=== PATIENT | female | born 1945 | race Caucasian/White ===

== ENCOUNTER → 2016-07-25 | Outpatient (CLI) | payer MEDICARE ==
--- NOTE | 2016-07-25 10:15 | RAD ---
Chest, 2 views, 07/25/2016: History: COPD, cough Comparison is made to a study from 09/03/2010. The lungs are hyperexpanded suggesting emphysema. There are scattered parenchymal scars. No acute infiltrate is seen. There is no evidence of pleural fluid. IMPRESSION: 1. Emphysema with parenchymal scarring. 2. No acute cardiopulmonary abnormality is detected.
== END | disposition home or self-care (01) ==
LOC: RAD 09:40
PROVIDERS: ATTEND Internal Medicine Critical Care Medicine
DX: J44.9 Chronic obstructive pulmonary disease, unspecified (principal); R05 Cough
CPT/HCPCS: 71020

== ENCOUNTER → 2016-10-01 | Outpatient (CLI) | payer MEDICARE ==
--- NOTE | 2016-10-03 08:17 | RAD ---
DATE: 10/01/2016 EXAM: DIGITAL SCREEN LT W/CAD HISTORY: Right breast cancer COMPARISON: 09/03/2015 This study was interpreted with the benefit of Computerized Aided Detection (CAD). The breast parenchyma is heterogeneously dense, which could reduce sensitivity of mammography. Breast parenchyma level C. FINDINGS: No new or enlarging breast densities are seen. Benign type calcifications are unchanged. No suspicious microcalcifications have developed. IMPRESSION: Stable left mammograms without evidence of malignancy. BI-RADS CATEGORY: 2 BENIGN FINDING(S) RECOMMENDED FOLLOW-UP: 12M 12 MONTH FOLLOW-UP PQRS compliance statement: Patient information was entered into a reminder system with a target due date for the next mammogram. Mammography is a sensitive method for finding small breast cancers, but it does not detect them all and is not a substitute for careful clinical examination. A negative mammogram does not negate a clinically suspicious finding and should not result in delay in biopsying a clinically suspicious abnormality. "Our facility is accredited by the [employer] Mammography Program."
== END | disposition home or self-care (01) ==
LOC: MAMMO 08:19
PROVIDERS: ATTEND Family Medicine
DX: Z12.31 Encounter for screening mammogram for malignant neoplasm of breast (principal)
CPT/HCPCS: G0202; 77067

== ENCOUNTER → 2017-06-14 | Day surgery (SDC) | payer MEDICARE ==
[~2017-06-14] MED LIST: LIDOCAINE 1% PF 2 ML VIAL.; PROPOFOL 20 ML IV
[2017-06-14] MEDS: IV RINGERS,LACTATED 1000ML 1,000 ML IV (06:29)
== END | disposition home or self-care (01) ==
LOC: ENDOS 06:06
DX: K64.0 First degree hemorrhoids (principal); D12.8 Benign neoplasm of rectum
CPT/HCPCS: 45385; 88305; J2704

== ENCOUNTER → 2019-10-22 | Outpatient (CLI) | payer MEDICARE ==
[2017-06-14 07:58] VITALS: BP 122/71
[~2019-10-22] MED LIST changes: +BUDE10.2 IH; -LIDOCAINE 1% PF 2 ML VIAL.; +LISI-334 PO; +PRAV40TA2 PO; -PROPOFOL 20 ML IV; +TRAZ-118 PO
--- NOTE | 2019-10-23 17:11 | RAD ---
EXAM: Unilateral digital screening mammography, left. HISTORY: Personal history of right breast cancer status post right mastectomy. Routine left surveillance. TECHNIQUE: Bilateral full field digital images were obtained in CC and MLO projections. Computer-aided detection was not available currently. COMPARISON: 10/20/2018. COMPOSITION: C. The breasts are heterogeneously dense, which may obscure small masses. FINDINGS: There is a region of architectural distortion and masslike density at the left 12:00 position. This lies just medial to course calcifications. See annotations. Elsewhere scattered and vascular calcifications appear benign. BI-RADS CATEGORY 0: Incomplete--Needs Additional Imaging Evaluation. RECOMMENDATION: 1. Compression/magnification images of a region of architectural distortion at the left 12:00 position. 2. Sonography of the left 12:00 position. Electronically signed by: Ledy Lu MD (10/23/2019 5:08 PM) [id number]
== END | disposition home or self-care (01) ==
LOC: MAMMO 10:45
PROVIDERS: ATTEND Family Medicine
DX: Z12.31 Encounter for screening mammogram for malignant neoplasm of breast (principal); N64.89 Other specified disorders of breast; Z85.3 Personal history of malignant neoplasm of breast
CPT/HCPCS: 77063; 77067

== ENCOUNTER → 2019-10-28 | Outpatient (CLI) | payer MEDICARE ==
[2017-06-14 07:58] VITALS: BP 122/71
[~2019-10-28] MED LIST changes: +ASCO500C9 PO; +CALC500T31 PO; +CHOL500050 PO; +HYDR-2761 PO; +MULT-496 PO; +OMEG1CAP50 PO; +SIMV20TA18 PO; +VENTOLIN HFA18 GM INH
--- NOTE | 2019-10-28 12:47 | RAD ---
DATE: 10/28/2019 10:04 AM EXAM: DIGITAL DIAGNOSTIC LT, BREAST LEFT HISTORY: Screening recall for left breast distortion. COMPARISON: 10/22/2019, 10/20/2018, 08/25/2010. Technique: Spot magnification views of the left breast in the CC and ML projections were obtained. Targeted ultrasound of the left breast was subsequently performed. FINDINGS: Breast Density: HETERO The breast parenchyma Is heterogeneously dense, which could reduce sensitivity of mammography. Breast parenchyma level C Spot magnification views of the left breast showed persistent architectural distortion in the superior left breast associated with coarse calcifications. Targeted ultrasound of this area revealed an irregular hypoechoic vascular mass measuring 2.0 x 1.3 x 1.5 cm at the left 12:00 position 2 cm from the nipple.Ultrasound of the left axilla revealed no adenopathy. IMPRESSION: Suspicious 2 cm mass at the left breast 12:00 position 2 cm from the nipple. BI-RADS CATEGORY: 4 SUSPICIOUS ABNORMALITY- BIOPSY SHOULD BE CONSIDERED RECOMMENDED FOLLOW-UP: BIO BIOPSY RECOMMENDED . Discussed with patient prior to her discharge from the imaging suite. Also discussed with the patient's referring physician Dr. Gerardo Blanton by telephone at 12:36 PM on 10/28/2019 PQRS compliance statement: Patient information was entered into a reminder system with a target due date for the next mammogram. Mammography is a sensitive method for finding small breast cancers, but it does not detect them all and is not a substitute for careful clinical examination. A negative mammogram does not negate a clinically suspicious finding and should not result in delay in biopsying a clinically suspicious abnormality. "Our facility is accredited by the [employer] Mammography Program."
== END ==
LOC: MAMMO 10:42
PROVIDERS: ATTEND Family Medicine
DX: N63.42 Unspecified lump in left breast, subareolar (principal)
CPT/HCPCS: 76641; 77065

== ENCOUNTER → 2019-11-12 | Outpatient (CLI) | payer MEDICARE ==
[2017-06-14 07:58] VITALS: BP 122/71
[~2019-11-12] MED LIST changes: -ASCO500C9 PO; -CALC500T31 PO; -CHOL500050 PO; -HYDR-2761 PO; -MULT-496 PO; -OMEG1CAP50 PO; -SIMV20TA18 PO; -VENTOLIN HFA18 GM INH
--- NOTE | 2019-11-12 18:08 | RAD ---
Examination: 1. Left breast core needle biopsy under ultrasound guidance. 2. Left digital postprocedure mammogram. INDICATION: 73-year-old lady with a suspicious left breast mass recommended for ultrasound-guided core needle biopsy. COMPARISON: Screening mammogram 10/22/2019, left digital diagnostic mammogram and breast ultrasound of 10/28/2019 TECHNIQUE AND FINDINGS: Informed consent was obtained and an appropriate procedural pause observed. Using standard sterile technique, ultrasound guidance and local anesthesia, two 14-gauge core biopsy samples of the 2 cm mass at the left breast 12:00 position 2 cm from the nipple were obtained and an S-shaped biopsy marker deployed at the biopsy site under ultrasound guidance. Hemostasis was ensured with direct breast compression and a postprocedure left mammogram was obtained. The left post procedure mammogram shows heterogeneously dense breast parenchyma with successful deployment of the S-shaped biopsy marker in the left breast mass at its medial margin with no postbiopsy hematoma. Patient tolerated procedure without incident. Puncture site was dressed in post procedure instructions reviewed prior to patient discharge. She was instructed to follow up with her referring physician regarding the results. There are no apparent complications. IMPRESSION: Successful left breast ultrasound-guided core needle biopsy of a 2 cm mass in the superior left breast. Pathology results are pending. An addendum will be issued once pathology results become available. Electronically signed by: Melinda Huertas MD (11/12/2019 6:06 PM) [id number]
--- NOTE | 2019-11-15 13:08 | PATHOLOGY ---
[facility] Accession Number: [id number] . 01 Material submitted: . breast - LEFT BREAST MASS, 12:00, 2CMFN. Modifiers: left, 12:00 . 01 Clinical history: . LEFT BREAST MASS . 02 Diagnosis: Breast "left mass at 12:00/2 cm from nipple", needle biopsy: - INVASIVE DUCTAL CARCINOMA, HIGH GRADE (GRADE 3), WITH A PROMINENT LYMPHOPLASMACYTIC COMPONENT. - Histologic grade ([place] Score; tubular formation - 3, nuclear pleomorphism - 3, mitotic rate - 2; total score - 8). - Greatest tumor dimension - 12 mm. - Microcalcifications involving tumor and surrounding benign breast tissue. . Dr. Valero is informed of the results on 11/15/2019. LBQ 11/15/2019 1303 Local . 02 Comment: Tissue from block A1 is forwarded for breast biomarker testing, and the results will be the subject of an addended report. The case is seen in co-review with Dr. Kyle Benito who concurs with the above diagnosis. (MLK/db; 11/14/2019) . 02 Electronically signed: . Thelma Elizondo MD, Pathologist NPI- [id number] . 01 Gross description: . The specimen is received in formalin, labeled "Kacey Galarza, left breast 12:00 2 cm from nipple". Received are two needle cores of fibrofatty tissue measuring 1.8 x 0.4 x 0.2 cm in aggregate dimensions. The specimen is submitted entirely in cassettes A1 and A2. The cold ischemic time is 2 minutes. The total formalin fixation time is 8 hours and 34 minutes. (CAA; 11/12/2019) QAC/QAC 11/12/2019 1655 Local . 02 Pathologist provided ICD-10: D05.12 . 02 CPT . 985641 Specimen Comment: A courtesy copy of this report has been sent to [phone], [phone] Specimen Comment: [id number], Specimen Comment: Report sent to ,DR VALERO / DR BRANDON Performed at: 01 [facility] [address], [place] [id number] MD Sunil Babcock MD Phone: [phone] Performed at: 02 [facility] [address], [place] [id number] MD Alf Ortega MD Phone: [phone]
== END | disposition home or self-care (01) ==
LOC: US 12:00
PROVIDERS: ATTEND Surgery
DX: C50.919 Malignant neoplasm of unspecified site of unspecified female breast (principal); N63.20 Unspecified lump in the left breast, unspecified quadrant; Z79.899 Other long term (current) drug therapy
CPT/HCPCS: 19083; 77065; C1713; 19081; 76942

== ENCOUNTER → 2019-11-22 | Outpatient (CLI) | payer MEDICARE ==
[2017-06-14 07:58] VITALS: BP 122/71
== END | disposition home or self-care (01) ==
LOC: LAB 13:02
PROVIDERS: ATTEND Surgery
DX: Z20.828 Contact with and (suspected) exposure to other viral communicable diseases (principal)
CPT/HCPCS: U0003-CS

== ENCOUNTER 2019-11-27 09:01 | Observation (INO) | payer MEDICARE ==
[~2019-11-27] VITALS: Ht 167.6 cm; Wt 51.0 kg
[2019-11-27] VITALS (8 sets, daily range): BP systolic 106–142; BP diastolic 64–74
[~2019-11-27 09:01] MED LIST changes: +ASCO500C9 PO; +CALC500T31 PO; +CHOL500050 PO; +HYDROmorphone 2 MG/ML VIAL IV PRN; +IV RINGERS,LACTATED 1000ML 1,000 ML IV SCH; +LIDOCAINE 1% PF 2 ML VIAL. ID PRN; +LIDOCAINE 2% PF 5 ML VIAL. ONE; +MORPHINE SULFATE 2 MG/ML VIAL. IV PRN; +MULT-496 PO; +OMEG1CAP50 PO; +ONDANSETRON PF 4 MG/2 ML VIAL. IV PRN; +PROCHLORPERAZINE 10 MG/2 ML VIAL. IV PRN; +PROPOFOL 10 MG/ML (20ML) VIAL. IV ONE; +SIMV20TA18 PO; +VENTOLIN HFA18 GM INH; +ceFAZolin SODIUM IV Push 1 GM VIAL. IVP ONE; +fentaNYL PF VIAL 100 MCG/2 ML VIAL IV PRN; +fentaNYL PF VIAL 100 MCG/2 ML VIAL ONE
[2019-11-27] MEDS ORDERED: ISOSULFAN BLUE 1% 50 MG/5 ML VIAL. SQ ONE (11:33)
[2019-11-27] MEDS ORDERED: SEVOFLURANE 61 TO 120 MINUTES. IH ONE (12:02)
[2019-11-27] MEDS ORDERED: DEXAMETHASONE SOD PHOS 4 MG/ML VIAL ONE (12:02)
[2019-11-27] MEDS ORDERED: ePHEDrine PF IN SALINE 50 MG/10 ML SYRINGE. IV ONE (12:25)
[2019-11-27] MEDS ORDERED: ONDANSETRON PF 4 MG/2 ML VIAL. ONE (12:25)
--- NOTE | 2019-11-27 12:44 | RAD ---
Examination: SENTINEL NODE INJECTION History: Reason: BREAST CANCER LEFT / Comparison/Correlation: None Findings: Risks and benefits of injection for sentinel node purposes were discussed with the patient and informed consent was obtained. Cleansing with Betadine at the left upper breast about the areola was performed. Subsequently, lidocaine spray was was utilized. 1 mCi technetium technetium 99m Lymphoseek was then intradermally administered approximately 1 cm from the areola at the 12:00 region. The technologist subsequently had massage the site of injection. No images acquired. Impression: Successful intradermal administration of radiotracer. Electronically signed by: Itz Ngo MD (11/27/2019 12:42 PM) [id number]
[2019-11-27] MEDS ORDERED: NALOXONE 0.4 MG/ML VIAL. IV PRN (13:45)
[2019-11-27] MEDS ORDERED: HYDROcodone/APAP 5/325MG 1 TAB TABLET PO PRN (13:45)
[2019-11-27] MEDS ORDERED: IV NORMAL SALINE 1000ML BAG 1,000 ML IV SCH (13:45)
[2019-11-27] MEDS ORDERED: HYDROmorphone 2 MG/ML VIAL IV PRN (13:45)
[2019-11-27] MEDS ORDERED: 0.9 % SODIUM CHLORIDE 10 ML DISP.SYRIN. IV PRN (13:45)
[2019-11-27] MEDS ORDERED: ONDANSETRON PF 4 MG/2 ML VIAL. IVP PRN (13:45)
[2019-11-27] MEDS ORDERED: IV 1/2 NORMAL SALINE 1,000 ML IV SCH (13:45)
--- NOTE | 2019-11-27 13:45 | PDOC4 ---
Operative Note Operative Note Operative Note: Preoperative Diagnosis: Left breast cancer Postoperative Diagnosis: Same Procedure: Left simple mastectomy with sentinel lymph node biopsy Surgeon: Ced Broadcast Technician: Guru MARKS Anesthesia: General EBL: 50 mL Specimen: Left sentinel lymph nodes 1 through 3 to pathology, left breast stitch at 12:00 to pathology Drains: 19 [place] round Maico drain to chest wall Complications: None Indication: The patient is a 73-year-old female who was recently diagnosed with left breast cancer. She prefers a complete mastectomy and we plan to include a sentinel lymph node biopsy. The risks of surgery were discussed which include bleeding, infection, scar tissue, wound healing problems, pain, anesthetic risk, potential need for additional surgery procedure. She understands and would like to proceed. Description: The patient was taken to the operating room and placed supine on the operating table. General anesthesia was performed. The left breast and axilla were prepped with ChloraPrep and draped in a standard surgical manner. 5 mL of Lymphazurin were injected deep to the nipple areolar complex. Several minutes were allowed to elapse. The left chest was marked with an elliptical tracing for planned mastectomy. In the superior lateral aspect of the tracing the skin was incised with a scalpel. Cautery dissection was carried down into the axilla. There were three areas of increased nuclear uptake corresponding to sentinel lymph nodes. The first two stained blue as well. The third did not. Each lymph node was harvested and sent to pathology. No other significant areas of increased uptake or blue staining were identified. Frozen section of the three lymph nodes showed no evidence of metastasis. We then proceeded with the mastectomy. With a scalpel the remainder of the elliptical incision was made following the tracing. Cautery dissection was used to develop the skin flaps. The superior flap was developed first the skin from the deeper breast parenchyma. This was carried superiorly to the level just below the clavicle. In a similar manner the inferior flap was developed which included the inframammary fold. In a medial to lateral fashion the breast was mobilized off the chest wall. The breast was fully excised and marked with a stitch at the 12 o'clock position and sent to pathology. Hemostasis was achieved with cautery. A 19 [place] round Maico drain was left in the chest wall with an exit site infer iorly. This was secured to the skin with 2-0 silk. The subcutaneous tissue was closed with 3-0 Vicryl and skin approximated with 4-0 Monocryl. A sterile OpSite dressing was then applied. The patient tolerated the procedure well sent to the recovery room in stable condition. At the end the case all counts were correct. DENNIS VALERO MD Nov 27, 2019 13:45
[2019-11-27] MEDS ORDERED: fentaNYL PF VIAL 100 MCG/2 ML VIAL ONE (13:58)
[2019-11-27] MEDS: fentaNYL PF VIAL 100 MCG/2 ML VIAL IV PRN ×2 (14:01→14:25)
[2019-11-27] MEDS ORDERED: ALBUTEROL SULFATE 2.5 MG/3 ML NEBU. NEB PRN (14:15)
--- NOTE | 2019-11-27 14:38 | NUR ---
Arrived to unit by bed from PACU. Alert and oriented x's 4. No c/o pain, "just sore". Dressing on left chest d/i with SUZAN drain. IVF's intact and infusing. SCD's on bilaterally. Oriented to room and controls. Side rails up x's 2 with call light in reach. Cont. monitor.
[2019-11-27] MEDS: ALBUTEROL SULFATE 2.5 MG/3 ML NEBU. NEB SCH ×2 (15:37→20:00)
[2019-11-27] MEDS ORDERED: NON FORMULARY ITEM (Albuterol Sulfate (Ventolin Hfa Inhaler) 2 PUFF) INH SCH (16:00)
[2019-11-27] MEDS: HYDROcodone/APAP 5/325MG 1 TAB TABLET PO PRN ×2 (19:19→23:22)
[2019-11-27] MEDS: BUDESONIDE 0.5 MG/2 ML NEBU. NEB SCH (20:00)
[2019-11-27] MEDS ORDERED: SIMVASTATIN 20 MG TABLET PO SCH (21:00)
[2019-11-27] MEDS ORDERED: traZODone 50 MG TABLET. PO SCH (21:00)
[2019-11-27] MEDS ORDERED: NON FORMULARY ITEM (Budesonide/Formoterol Fumarate (Symbicort 160-4.5 Mcg Inhaler) 1 PUFF) IH SCH (21:00)
[2019-11-28 03:10] VITALS: BP 133/64
[2019-11-28 06:11] VITALS: BP 130/59
[2019-11-28] MEDS: BUDESONIDE 0.5 MG/2 ML NEBU. NEB SCH (07:36)
[2019-11-28] MEDS: ALBUTEROL SULFATE 2.5 MG/3 ML NEBU. NEB SCH ×2 (07:37→11:11)
[2019-11-28] MEDS ORDERED: ASCORBIC ACID 500 MG TABLET PO SCH (09:00)
[2019-11-28] MEDS ORDERED: CHOLECALCIFEROL (VITAMIN D3) 5,000 UNIT CAPSULE PO SCH (09:00)
[2019-11-28] MEDS ORDERED: MULTIVITAMIN with MINERAL TABLET. PO SCH (09:00)
[2019-11-28] MEDS ORDERED: CALCIUM CARBONATE 500 MG TABLET PO SCH (09:00)
[2019-11-28] MEDS ORDERED: LISINOPRIL 20 MG TABLET PO SCH (09:00)
--- NOTE | 2019-11-28 09:00 | NUR ---
Ambulating in room with steady gait. No c/o at this time. Cont. monitor.
[2019-11-28 10:48] VITALS: BP 123/77
[2019-11-28] MEDS ORDERED: HYDR-2761 PO (11:10)
--- NOTE | 2019-11-28 11:11 | DISCH ---
DISCHARGE INSTRUCTIONS Condition on Discharge Condition on Discharge: Stable Activity After Discharge Activity Instructions for Disc: Activity as tolerated Other activity instructions: leave dressing in place Driving Instructions after Dis: Do not drive Diet after Discharge Diet after Discharge: Regular Wound Incision Care Wound/Incision Care: Do not change dressing Other wound/incision instructi: drain teaching as instructed Contacting the after DC Call your doctor for: Concerns you may have Follow-Up Follow up with: Dr Coughlin 1 week, call to schedule [phone] BABITA GALLEGOS APRN Nov 28, 2019 11:11
--- NOTE | 2019-11-28 11:21 | PDOC ---
SURGICAL PROGRESS NOTE DATE: 11/28/19 TIME: 11:16 Subjective feels pretty well tolerating diet Vital Signs Vital Signs Date Time Temp Pulse Resp B/P (MAP) Pulse Ox O2 Delivery O2 Flow Rate FiO2 11/28/19 10:48 98.5 83 18 123/77 (92) 95 Room Air 98.5 11/27/19 20:19 8.0 I&O Intake and Output 11/28/19 07:00 Intake Total 2432 ml Output Total 140 ml Balance 2292 ml Intake Oral 890 ml IV Total 1542 ml Output Drainage Total 90 ml Estimated Blood Loss 50 ml # Voids 2 General: Alert, Oriented X3 Skin: Other (dressing to left breast site intact, drain serosang ) Problem List s/p mastectomy dc home drain teaching FU 1 week Justicifation of Admission Dx: Justifications for Admission: Justification of Admission Dx: Yes Comments: breast cancer BABITA GALLEGOS TILE HELPER Nov 28, 2019 11:21
--- NOTE | 2019-11-28 11:25 | PDOC3 ---
Discharge Summary Visit Information Date of Admission: Nov 27, 2019 Date of Discharge: Nov 28, 2019 Admitting Diagnosis: left breast cancer Final Diagnosis left breast cancer Brief Hospital Course Allergies Allergies Coded Allergies Type Severity Reaction Last Updated Verified No Known Drug Allergies 11/26/19 No Vital Signs Vital Signs Date Time Temp Pulse Resp B/P (MAP) Pulse Ox O2 Delivery O2 Flow Rate FiO2 11/28/19 10:48 98.5 83 18 123/77 (92) 95 Room Air 98.5 11/27/19 20:19 8.0 Brief Hospital Course Ms. Galarza is a 73 old female who underwent Left simple mastectomy with sentinel lymph node biopsy. Postoperatively tolerating diet, ambulating, and pain managed. Drain intact. She is ready for discharge home. She will follow up in office next week for drain eval Discharge Information Condition at Discharge: Stable Follow Up: Weeks (1) Disposition/Orders: D/C to Home Scheduled Albuterol Sulfate (Ventolin Hfa Inhaler) 18 Gm Hfa.aer.ad, 2 PUFF INH Q4HRS for rescue inhaler for COPD, Ref 0 (Reported) Entered as Reported by: JR HARGROVE on 11/26/19 09 Last Taken: Unknown Dose on 11/27/19 0700 Last Action: Converted on 11/27/19 135 by DENNIS VALERO Ascorbic Acid (Vitamin C) 500 Mg Capsule, 1 CAP PO DAILY for supplement for 28 Days, #28 Ref 0 (Reported) Entered as Reported by: JR HARGROVE on 11/26/19 0905 Last Action: Converted on 11/27/19 135 by DENNIS VALERO Budesonide/Formoterol Fumarate (Symbicort 160-4.5 Mcg Inhaler) 10.2 Gm Hfa.aer.ad, 1 PUFF IH BID, (Reported) Entered as Reported by: ROMA ZUÑIGA on 06/14/17 0622 Last Action: Converted on 11/27/19 135 by DENNIS VALERO Calcium Carbonate (Calcium Carbonate) 500 Mg Tablet, 1 TAB PO DAILY for supplement for 30 Days, #30 Ref 0 (Reported) Entered as Reported by: JR HARGROVE on 11/26/19 0900 Last Action: Continued on 11/27/19 1352 by DENNIS VALERO Cholecalciferol (Vitamin D3) (Vitamin D3) 1,250 Mcg Capsule, 1,250 MCG PO DAILY for supplement, (Reported) Entered as Reported by: JR HARGROVE on 11/26/19903 Last Action: Converted on 11/27/191351 by DENNIS VALERO Lisinopril (Lisinopril) 20 Mg Tablet, 20 MG PO DAILY for FOR HYPERTENSION, #30 Ref 0 (Reported) Entered as Reported by: ROMA ZUÑIGA on 06/14/17621 Last Action: Continued on 11/27/191351 by DENNIS VALERO Multivitamin (Daily Value) 1 Each Tablet, 1 TAB PO DAILY for supplement for 30 Days, #30 Ref 0 (Reported) Entered as Reported by: JR HARGROVE on 11/26/19900 Last Action: Converted on 11/27/191351 by DENNIS VALERO [place]-3 Fatty Acids/Fish Oil (Fish Oil 1,000 Mg Softgel) 1 Each Capsule, 1 CAP PO DAILY for supplement for 30 Days, #30 Ref 0 (Reported) Entered as Reported by: JR HARGROVE on 11/26/19904 Last Taken: Unknown Dose on 11/20/19 Last Action: HELD on 11/27/191351 by DENNIS VALERO Simvastatin (Simvastatin) 20 Mg Tablet, 1 TAB PO QHS for hyperlipidemia, #30 Ref 5 (Reported) Entered as Reported by: JR HARGROVE on 11/26/19 0859 Last Action: Continued on 11/27/191351 by DENNIS VALERO Trazodone Hcl (Trazodone Hcl) 50 Mg Tablet, 50 MG PO HS, (Reported) Entered as Reported by: ROMA ZUÑIGA on 06/14/17621 Last Action: Continued on 11/27/191351 by DENNIS VALERO Scheduled PRN Hydrocodone Bit/Acetaminophen (Hydrocodone-Apap 5-325 ) 1 Tab Tablet, 1 TAB PO PRN Q4HRS PRN for MILD PAIN 1-3, #20 Ref 0 Prescribed by: Babita Kelly on 11/28/19 1110 Discontinued Medications Pravastatin Sodium (Pravastatin Sodium) 40 Mg Tablet, 40 MG PO DAILY, (Reported) Entered as Reported by: ROMA ZUÑIGA on 06/14/17621 Last Action: Discontinued on 11/26/19 0900 by JR HARGROVE Justicifation of Admission Dx: Justifications for Admission: Justification of Admission Dx: Yes BABITA KELLY DINING SERVICES DIRECTOR Nov 28, 2019 11:25
--- NOTE | 2019-11-28 12:45 | NUR ---
Discharge instructions given. Answered questions and concerns. Verbalized understanding. Instructed and demonstrated how to take care SUZAN drain. Pt discharged home. Escorted out by w/c accompanied by sister and staff.
== END 2019-11-28 12:45 | disposition home or self-care (01) ==
LOC: SURG 09:01 → 4 SOUTHEST 13:50
PROVIDERS: ADMIT Surgery; ATTEND Surgery
DX: C50.912 Malignant neoplasm of unspecified site of left female breast (principal)
CPT/HCPCS: 19303; 38500; 38792; A7015; A9520; G0378; G0379; J0690; J1100; J2405; J2704; J3010; J7120; Q9968; 96374

== ENCOUNTER 2019-12-30 13:10 | Outpatient (CLI) | payer MEDICARE ==
[~2019-12-30] VITALS: Ht 167.6 cm; Wt 50.8 kg
[~2019-12-30 13:10] MED LIST changes: +HYDR-2761 PO; -HYDROmorphone 2 MG/ML VIAL IV PRN; -IV RINGERS,LACTATED 1000ML 1,000 ML IV SCH; -LIDOCAINE 1% PF 2 ML VIAL. ID PRN; -LIDOCAINE 2% PF 5 ML VIAL. ONE; -MORPHINE SULFATE 2 MG/ML VIAL. IV PRN; -ONDANSETRON PF 4 MG/2 ML VIAL. IV PRN; -PROCHLORPERAZINE 10 MG/2 ML VIAL. IV PRN; -PROPOFOL 10 MG/ML (20ML) VIAL. IV ONE; -ceFAZolin SODIUM IV Push 1 GM VIAL. IVP ONE; -fentaNYL PF VIAL 100 MCG/2 ML VIAL IV PRN; -fentaNYL PF VIAL 100 MCG/2 ML VIAL ONE
[2019-12-30] MEDS ORDERED: LIDOCAINE WITH 8.4% SOD BICARB 3 ML DISP.SYRIN. ONE (13:19)
[2019-12-30 13:48] VITALS: BP 163/75
[2019-12-30] MEDS ORDERED: LIDOCAINE 1%/EPI 1:100,000 20 ML VIAL. ONE (13:53)
[2019-12-30] MEDS ORDERED: HEPARIN PF 500 UNIT/5 ML DISP.SYRIN. IVP ONE (13:53)
[2019-12-30] MEDS: HEPARIN PF 500 UNIT/5 ML DISP.SYRIN. IVP PRN ×2 (14:20→14:28)
[2019-12-30] MEDS ORDERED: LIDOCAINE 1%/EPI 1:100,000 20 ML VIAL. INJ ONE (14:30)
[2019-12-30 15:00] VITALS: BP 136/75
--- NOTE | 2019-12-30 15:20 | NUR ---
Pt here for tunneled dialysis cath placement, R chest placement, pt completed 30 minute recovery and when pt started to get dressed had a small amt of bleeding from suture site. New dressing placed and pt given dc instructions. Pt ambulated out with steady gait. Pt returned 5 minutes later and stated site was bleeding again. pt did have small amt of oozing from site. Dr Nam called and came to see patient. New pressure dressing placed, bleeding minimal and stopped. Pt instructed to call with any concerns, pt voiced understanding. Escorted out by wheelchair. JEY CONTRERASforklift truck mechanic Note: DONNA CRABTREE Discharge instructions and discharge home medications reviewed with Patient and a copy given. All questions have been answered and understanding verbalized. Power line card given to pt The following instructions and handouts were given: central line, flushing guide R chest tunneled power line intact. Patient discharged to Home or Self Care with Friend via Wheelchair JEY CONTRERAS Addendum: 12/30/19 at 1547 by LAURA GRAHAM RN Amended: Links added.
--- NOTE | 2019-12-31 08:27 | RAD ---
Procedure: Ultrasound and fluoroscopically guided placement of tunnel central venous catheter. 12/31/2019 6:23 AM Clinical Indication: Chemotherapy access, history of breast cancer. History of bilateral mastectomy. Course of therapy approximately 3 months Fluoroscopy time: 0.6 minutes Dose area product: 0.6 Gycm2 Consent: The procedure was explained in its entirety to the patient or the patients designated accounts receivable representative by a member of the treatment team, including a discussion of the risks, benefits and commonly accepted alternatives to the procedure, as well as the expected consequences of no therapy whatsoever. Discussion of the risks included, but was not limited to, those that are most frequent and those that are rare but possibly severe or life-threatening, as well as the possibility of unforeseen complications. Sterility: All elements of maximal sterile barrier technique including the use of a cap, mask, sterile gown, sterile gloves, large sterile sheet, appropriate hand hygiene, and 2% chlorhexidine for cutaneous antisepsis (or acceptable alternative antiseptic per current guidelines) were followed for this procedure. Technique and Findings: Following informed consent, the patient was prepped and draped in the usual sterile fashion. Ultrasound interrogation of the right neck revealed patency and compressibility of the right internal jugular vein. A 21-gauge micropuncture was then used to gain access to this vein under ultrasound guidance. A hard copy ultrasound image was recorded. The needle was exchanged over a wire for a sheath. A small incision was made several centimeters inferior to the right clavicle. A power line was trimmed to length, advanced from the small skin incision to the venotomy site, and then advanced through a peel-away sheath to the level of the cavoatrial junction. Catheter was found to flush and aspirate normally. Catheter was secured in place with 2-0 Prolene suture and a sterile dressing was applied. Catheter was packed with heparin per protocol. The neck dermatotomy was closed with Dermabond. No immediate complications were identified. Impression: Successful ultrasound and fluoroscopically guided placement of a right internal jugular tunneled central venous catheter
== END 2019-12-30 15:30 | disposition home or self-care (01) ==
LOC: INTRAD 13:10
PROVIDERS: ATTEND Internal Medicine Hematology & Oncology
DX: C50.911 Malignant neoplasm of unspecified site of right female breast (principal); Z90.13 Acquired absence of bilateral breasts and nipples; Z87.891 Personal history of nicotine dependence; Z79.899 Other long term (current) drug therapy
CPT/HCPCS: 36558; 76937; 77001; C1751; C1892; J1642; J3490

== ENCOUNTER → 2020-01-01 | Outpatient (CLI) | payer MEDICARE ==
[2019-12-30 15:00] VITALS: BP 136/75
[2020-01-01 14:28] LABS: BASO # 0.1 x10^3/uL (0.0-0.2); BASO % 1 % (0-3); EOS % 0 % (0-3); HEMATOCRIT 39.4 % (36.0-47.0); HEMOGLOBIN 13.6 g/dL (12.0-15.5); LYMPH # 1.3 x10^3/uL (1.0-4.8); LYMPH % 16 % (24-48); MEAN CORPUSCULAR HEMOGLOBIN 34 pg (25-35); MEAN CORPUSCULAR HGB CONC 35 g/dL (31-37); MEAN CORPUSCULAR VOLUME 98 fL (79-100); MONO # 0.8 x10^3/uL (0.0-1.1); MONO % 10 % (0-9); NEUT % 73 % (31-73); PLATELET COUNT 206 x10^3/uL (140-400); RED BLOOD COUNT 4.03 x10^6/uL (3.50-5.40); RED CELL DISTRIBUTION WIDTH 11.9 % (11.5-14.5); WHITE BLOOD COUNT 8.3 x10^3/uL (4.0-11.0)
[2020-01-01 14:39] LABS: CALCIUM 9.5 mg/dL (8.5-10.1); CREATININE 0.6 mg/dL (0.6-1.0); GFR 98.3; POTASSIUM 4.2 mmol/L (3.5-5.1)
[2020-01-01 14:45] LABS: ALBUMIN 3.7 g/dL (3.4-5.0); ALBUMIN/GLOBULIN RATIO 1.1 (1.0-1.7); TOTAL BILIRUBIN 0.4 mg/dL (0.2-1.0); TOTAL PROTEIN 7.1 g/dL (6.4-8.2)
== END ==
LOC: ONCLAB 14:17
PROVIDERS: ATTEND Physician Assistant
DX: C50.911 Malignant neoplasm of unspecified site of right female breast (principal)
CPT/HCPCS: 36415; 80053; 85025

== ENCOUNTER → 2020-01-02 | Outpatient (CLI) | payer MEDICARE ==
[2019-12-30 15:00] VITALS: BP 136/75
== END ==
LOC: ONCLAB 08:17
PROVIDERS: ATTEND Physician Assistant
DX: C50.911 Malignant neoplasm of unspecified site of right female breast (principal)
CPT/HCPCS: 36415

== ENCOUNTER → 2020-01-09 | Outpatient (CLI) | payer MEDICARE ==
[2019-12-30 15:00] VITALS: BP 136/75
[2020-01-09 11:33] LABS: CREATININE 0.6 mg/dL (0.6-1.0); GFR 98.3; POTASSIUM 3.6 mmol/L (3.5-5.1)
[2020-01-09 11:42] LABS: BASO % 1 % (0-3); EOS % 3 % (0-3); HEMATOCRIT 35.5 % (36.0-47.0); HEMOGLOBIN 12.2 g/dL (12.0-15.5); LYMPH # 0.8 x10^3/uL (1.0-4.8); LYMPH % 43 % (24-48); MEAN CORPUSCULAR HEMOGLOBIN 34 pg (25-35); MEAN CORPUSCULAR HGB CONC 34 g/dL (31-37); MEAN CORPUSCULAR VOLUME 98 fL (79-100); MONO # 0.8 x10^3/uL (0.0-1.1); MONO % 43 % (0-9); NEUT # 0.2 x10^3/uL (1.8-7.7); NEUT % 10 % (31-73); PLATELET COUNT 101 x10^3/uL (140-400); RED BLOOD COUNT 3.62 x10^6/uL (3.50-5.40); RED CELL DISTRIBUTION WIDTH 11.7 % (11.5-14.5)
[2020-01-09 11:43] LABS: WHITE BLOOD COUNT 1.8 x10^3/uL (4.0-11.0)
[2020-01-09 13:24] LABS: % ATYL 4 % (0-0); % EOS 4 % (0-5); % LYMPHS 54 % (24-48); % METAS 2 % (0-0); % MONOS 34 % (0-10); % SEGS 2 % (35-66); PLT ESTIMATE DECREASED (ADEQUATE)
== END ==
LOC: ONCLAB 11:08
PROVIDERS: ATTEND Internal Medicine Hematology & Oncology
DX: C50.911 Malignant neoplasm of unspecified site of right female breast (principal)
CPT/HCPCS: 36415; 80048; 85007; 85025

== ENCOUNTER → 2020-01-23 | Outpatient (CLI) | payer MEDICARE ==
[2019-12-30 15:00] VITALS: BP 136/75
[2020-01-23 09:46] LABS: BASO % 1 % (0-3); EOS % 0 % (0-3); HEMATOCRIT 35.8 % (36.0-47.0); HEMOGLOBIN 12.2 g/dL (12.0-15.5); LYMPH # 1.5 x10^3/uL (1.0-4.8); LYMPH % 40 % (24-48); MEAN CORPUSCULAR HEMOGLOBIN 34 pg (25-35); MEAN CORPUSCULAR HGB CONC 34 g/dL (31-37); MEAN CORPUSCULAR VOLUME 99 fL (79-100); MONO # 0.5 x10^3/uL (0.0-1.1); MONO % 14 % (0-9); NEUT # 1.7 x10^3/uL (1.8-7.7); NEUT % 46 % (31-73); PLATELET COUNT 233 x10^3/uL (140-400); RED BLOOD COUNT 3.63 x10^6/uL (3.50-5.40); RED CELL DISTRIBUTION WIDTH 12.4 % (11.5-14.5); WHITE BLOOD COUNT 3.8 x10^3/uL (4.0-11.0)
[2020-01-23 09:52] LABS: CALCIUM 9.2 mg/dL (8.5-10.1); CREATININE 0.6 mg/dL (0.6-1.0); GFR 98.3; POTASSIUM 3.7 mmol/L (3.5-5.1)
[2020-01-23 09:58] LABS: ALBUMIN 3.3 g/dL (3.4-5.0); TOTAL BILIRUBIN 0.5 mg/dL (0.2-1.0); TOTAL PROTEIN 6.7 g/dL (6.4-8.2)
== END ==
LOC: ONCLAB 09:09
PROVIDERS: ATTEND Internal Medicine Hematology & Oncology
DX: C50.911 Malignant neoplasm of unspecified site of right female breast (principal)
CPT/HCPCS: 36415; 80053; 85025

== ENCOUNTER → 2020-01-29 | Outpatient (CLI) | payer MEDICARE ==
[2019-12-30 15:00] VITALS: BP 136/75
[2020-01-29 10:07] LABS: BASO % 1 % (0-3); EOS % 1 % (0-3); HEMATOCRIT 31.6 % (36.0-47.0); HEMOGLOBIN 10.7 g/dL (12.0-15.5); LYMPH # 0.6 x10^3/uL (1.0-4.8); LYMPH % 21 % (24-48); MEAN CORPUSCULAR HEMOGLOBIN 34 pg (25-35); MEAN CORPUSCULAR HGB CONC 34 g/dL (31-37); MEAN CORPUSCULAR VOLUME 99 fL (79-100); MONO # 0.1 x10^3/uL (0.0-1.1); MONO % 3 % (0-9); NEUT # 2.1 x10^3/uL (1.8-7.7); NEUT % 74 % (31-73); PLATELET COUNT 103 x10^3/uL (140-400); RED BLOOD COUNT 3.19 x10^6/uL (3.50-5.40); RED CELL DISTRIBUTION WIDTH 12.7 % (11.5-14.5); WHITE BLOOD COUNT 2.8 x10^3/uL (4.0-11.0)
[2020-01-29 10:17] LABS: CALCIUM 8.9 mg/dL (8.5-10.1); CREATININE 0.4 mg/dL (0.6-1.0); GFR 156.9
[2020-01-29 13:03] LABS: PLT ESTIMATE DECREASED (ADEQUATE)
== END ==
LOC: ONCLAB 09:32
PROVIDERS: ATTEND Physician Assistant
DX: C50.911 Malignant neoplasm of unspecified site of right female breast (principal)
CPT/HCPCS: 36415; 80048; 85007; 85025

== ENCOUNTER → 2020-02-13 | Outpatient (CLI) | payer MEDICARE ==
[2020-02-13 09:31] LABS: BASO % 1 % (0-3); EOS % 0 % (0-3); HEMATOCRIT 34.7 % (36.0-47.0); HEMOGLOBIN 11.6 g/dL (12.0-15.5); LYMPH # 1.1 x10^3/uL (1.0-4.8); LYMPH % 34 % (24-48); MEAN CORPUSCULAR HEMOGLOBIN 33 pg (25-35); MEAN CORPUSCULAR HGB CONC 33 g/dL (31-37); MEAN CORPUSCULAR VOLUME 100 fL (79-100); MONO # 0.3 x10^3/uL (0.0-1.1); MONO % 10 % (0-9); NEUT # 1.8 x10^3/uL (1.8-7.7); NEUT % 55 % (31-73); PLATELET COUNT 200 x10^3/uL (140-400); RED BLOOD COUNT 3.49 x10^6/uL (3.50-5.40); RED CELL DISTRIBUTION WIDTH 13.1 % (11.5-14.5); WHITE BLOOD COUNT 3.3 x10^3/uL (4.0-11.0)
[2020-02-13 09:41] LABS: CALCIUM 8.7 mg/dL (8.5-10.1); CREATININE 0.5 mg/dL (0.6-1.0); GFR 121.3
[2020-02-13 09:47] LABS: ALBUMIN 3.3 g/dL (3.4-5.0); TOTAL BILIRUBIN 0.5 mg/dL (0.2-1.0); TOTAL PROTEIN 6.6 g/dL (6.4-8.2)
== END ==
LOC: ONCLAB 09:14
PROVIDERS: ATTEND Internal Medicine Hematology & Oncology
DX: C50.911 Malignant neoplasm of unspecified site of right female breast (principal)
CPT/HCPCS: 36415; 80053; 85025

== ENCOUNTER → 2020-03-10 | Outpatient (CLI) | payer MEDICARE ==
[~2020-03-10] MED LIST changes: -LISI-334 PO; +LISI20TA18 PO
[2020-03-10 09:52] LABS: BASO # 0.1 x10^3/uL (0.0-0.2); BASO % 2 % (0-3); EOS % 1 % (0-3); HEMATOCRIT 33.7 % (36.0-47.0); HEMOGLOBIN 11.2 g/dL (12.0-15.5); LYMPH # 1.1 x10^3/uL (1.0-4.8); LYMPH % 35 % (24-48); MEAN CORPUSCULAR HEMOGLOBIN 34 pg (25-35); MEAN CORPUSCULAR HGB CONC 33 g/dL (31-37); MEAN CORPUSCULAR VOLUME 101 fL (79-100); MONO # 0.3 x10^3/uL (0.0-1.1); MONO % 10 % (0-9); NEUT # 1.6 x10^3/uL (1.8-7.7); NEUT % 51 % (31-73); PLATELET COUNT 179 x10^3/uL (140-400); RED BLOOD COUNT 3.32 x10^6/uL (3.50-5.40); RED CELL DISTRIBUTION WIDTH 15.5 % (11.5-14.5); WHITE BLOOD COUNT 3.1 x10^3/uL (4.0-11.0)
[2020-03-10 09:56] LABS: CALCIUM 8.7 mg/dL (8.5-10.1); CREATININE 0.5 mg/dL (0.6-1.0); GFR 121.3; POTASSIUM 3.9 mmol/L (3.5-5.1)
[2020-03-10 10:01] LABS: ALBUMIN 3.2 g/dL (3.4-5.0); ALBUMIN/GLOBULIN RATIO 1.1 (1.0-1.7); TOTAL BILIRUBIN 0.5 mg/dL (0.2-1.0); TOTAL PROTEIN 6.2 g/dL (6.4-8.2)
== END ==
LOC: ONCLAB 08:49
PROVIDERS: ATTEND Internal Medicine Hematology & Oncology
DX: C50.911 Malignant neoplasm of unspecified site of right female breast (principal)
CPT/HCPCS: 36415; 80053; 85025

== ENCOUNTER → 2020-05-13 | Outpatient (CLI) | payer MEDICARE ==
--- NOTE | 2020-05-13 13:38 | KCIC ---
EXAM: Chest, 2 views. HISTORY: Shortness of breath. COMPARISON: 07/25/2016 FINDINGS: 2 views of the chest are obtained. There is emphysema. There is linear scarring within the right upper lobe. There is right suprahilar opacity with slight architectural distortion, also likely due to scarring. The long-term stability is needed. The heart is normal in size. There is no pleural effusion or pneumothorax. IMPRESSION: Emphysema with suspected right suprahilar and upper lobe pleural parenchymal scarring Electronically signed by: Valerie Pillai MD (05/13/2020 1:36 PM) [id number]
== END ==
LOC: KCIC 13:09
PROVIDERS: ATTEND Nurse Practitioner Gerontology
DX: J43.9 Emphysema, unspecified (principal); R06.02 Shortness of breath
CPT/HCPCS: 71046

== ENCOUNTER → 2020-06-08 | Outpatient (CLI) | payer MEDICARE ==
[2020-06-08 11:48] LABS: BASO % 0 % (0-3); EOS % 1 % (0-3); HEMOGLOBIN 13.8 g/dL (12.0-15.5); LYMPH % 22 % (24-48); MEAN CORPUSCULAR HEMOGLOBIN 33 pg (25-35); MEAN CORPUSCULAR HGB CONC 34 g/dL (31-37); MEAN CORPUSCULAR VOLUME 99 fL (79-100); MONO # 0.4 x10^3/uL (0.0-1.1); MONO % 8 % (0-9); NEUT # 3.2 x10^3/uL (1.8-7.7); NEUT % 69 % (31-73); PLATELET COUNT 162 x10^3/uL (140-400); RED BLOOD COUNT 4.14 x10^6/uL (3.50-5.40); RED CELL DISTRIBUTION WIDTH 12.8 % (11.5-14.5); WHITE BLOOD COUNT 4.6 x10^3/uL (4.0-11.0)
[2020-06-08 11:50] LABS: CALCIUM 9.1 mg/dL (8.5-10.1); CREATININE 0.5 mg/dL (0.6-1.0); GFR 121.3; POTASSIUM 4.4 mmol/L (3.5-5.1)
[2020-06-08 11:57] LABS: ALBUMIN 3.7 g/dL (3.4-5.0); TOTAL BILIRUBIN 0.4 mg/dL (0.2-1.0); TOTAL PROTEIN 7.5 g/dL (6.4-8.2)
== END ==
LOC: ONCLAB 10:25
PROVIDERS: ATTEND Physician Assistant
DX: C50.911 Malignant neoplasm of unspecified site of right female breast (principal)
CPT/HCPCS: 36415; 80053; 83615; 85025; 86300

== ENCOUNTER → 2020-08-31 | Outpatient (CLI) | payer MEDICARE ==
[2020-08-31 10:36] LABS: BASO % 1 % (0-3); EOS # 0.1 x10^3/uL (0.0-0.7); EOS % 2 % (0-3); HEMATOCRIT 40.5 % (36.0-47.0); HEMOGLOBIN 13.7 g/dL (12.0-15.5); LYMPH # 1.5 x10^3/uL (1.0-4.8); LYMPH % 38 % (24-48); MEAN CORPUSCULAR HEMOGLOBIN 34 pg (25-35); MEAN CORPUSCULAR HGB CONC 34 g/dL (31-37); MEAN CORPUSCULAR VOLUME 100 fL (79-100); MONO # 0.3 x10^3/uL (0.0-1.1); MONO % 8 % (0-9); NEUT % 52 % (31-73); PLATELET COUNT 163 x10^3/uL (140-400); RED BLOOD COUNT 4.07 x10^6/uL (3.50-5.40); RED CELL DISTRIBUTION WIDTH 12.6 % (11.5-14.5); WHITE BLOOD COUNT 3.9 x10^3/uL (4.0-11.0)
[2020-08-31 10:49] LABS: CALCIUM 9.1 mg/dL (8.5-10.1); CREATININE 0.6 mg/dL (0.6-1.0); GFR 98.3
[2020-08-31 10:55] LABS: ALBUMIN 3.9 g/dL (3.4-5.0); ALBUMIN/GLOBULIN RATIO 1.1 (1.0-1.7); TOTAL BILIRUBIN 0.6 mg/dL (0.2-1.0); TOTAL PROTEIN 7.3 g/dL (6.4-8.2)
== END ==
LOC: ONCLAB 09:41
PROVIDERS: ATTEND Internal Medicine Hematology & Oncology
DX: C50.911 Malignant neoplasm of unspecified site of right female breast (principal)
CPT/HCPCS: 36415; 80053; 83615; 85025; 86300

== ENCOUNTER 2020-11-20 13:12 | Inpatient (IN) | payer MEDICARE ==
[~2020-11-20] VITALS: Ht 167.6 cm; Wt 52.0 kg
[2020-11-20] MEDS ORDERED: methylPREDNISolone SOD SUCC PF 125 MG/2 ML VIAL. IV ONE (13:45)
[2020-11-20] MEDS ORDERED: IPRATRPIUM/ALBUTEROL 0.5/2.5MG 3 ML NEBU. NEB ONE (13:45)
[2020-11-20 13:55] LABS: BASO % 1 % (0-3); EOS # 0.1 x10^3/uL (0.0-0.7); EOS % 2 % (0-3); HEMATOCRIT 36.7 % (36.0-47.0); HEMOGLOBIN 12.3 g/dL (12.0-15.5); LYMPH # 0.8 x10^3/uL (1.0-4.8); LYMPH % 12 % (24-48); MEAN CORPUSCULAR HEMOGLOBIN 33 pg (25-35); MEAN CORPUSCULAR HGB CONC 34 g/dL (31-37); MEAN CORPUSCULAR VOLUME 99 fL (79-100); MONO # 0.9 x10^3/uL (0.0-1.1); MONO % 13 % (0-9); NEUT # 5.1 x10^3/uL (1.8-7.7); NEUT % 73 % (31-73); PLATELET COUNT 236 x10^3/uL (140-400); RED BLOOD COUNT 3.72 x10^6/uL (3.50-5.40); RED CELL DISTRIBUTION WIDTH 11.5 % (11.5-14.5); WHITE BLOOD COUNT 6.9 x10^3/uL (4.0-11.0)
--- NOTE | 2020-11-20 14:01 | PHYS DOC ---
Past Medical History Past Surgical History: Appendectomy, Other Additional Past Surgical Histo: EAR TUMOR, MASECTOMY (KIM PICKENS MEDICAL ONCOLOGIST) Smoking Status: Former Smoker (KIM PICKENS MEDICAL ONCOLOGIST) General Adult EDM: Chief Complaint: SHORTNESS OF BREATH HPI: HPI: Patient is a 74 year old female who presents with worsening shortness of breath for the last 2 weeks. She states when she sitting she can get it out of control but when she is up and walking she cannot get very far. She states that she gets very short of breath. She states that every now and then she will take off her oxygen so she can take a shower or do certain things and she noticed that her O2 sat was only 76% she does not usually drop that for down. She states morning when she was in the shower she knew " she was in trouble". Upon arriving back into the ED room patient's respirations were 32 and her oxygen saturation was 90% on the 2.5 L. Patient states she is gotten increasingly wet cough. She has a history of COPD, high cholesterol, appendectomy. Patient has also had both of her Covid vaccines. She denies chest pain, fever, headache, dizziness, syncope, focal weakness, abdominal pain, nausea, vomiting, diarrhea, numbness tingling. (KIM PICKENS MEDICAL ONCOLOGIST) Review of Systems: Review of Systems: Constitutional: Denies fever or chills. [] Eyes: Denies change in visual acuity. [] HENT: Denies nasal congestion or sore throat. [] Respiratory: +cough or +shortness of breath. [] Cardiovascular: Denies chest pain or edema. [] GI: Denies abdominal pain, nausea, vomiting, bloody stools or diarrhea. [] : Denies dysuria. [] Musculoskeletal: Denies back pain or joint pain. [] Integument: Denies rash. [] Neurologic: Denies headache, focal weakness or sensory changes. [] Endocrine: Denies polyuria or polydipsia. [] Lymphatic: Denies swollen glands. [] Psychiatric: Denies depression or anxiety. [] (KIM PICKENS APRN) Heart Score: C/O Chest Pain: No HEART Score for Chest Pain: HEART Score for Chest Pain Response (Comments) Value History Slighlty/Non-Suspicious 0 ECG Nonspecific Repolarizatio 1 Age > 65 2 Risk Factors 1 or 2 Risk Factors 1 Troponin < Normal Limit 0 Total 4 Risk Factors: Risk Factors: DM, Current or recent (<one month) smoker, HTN, HLP, family history of CAD, obesity. Risk Scores: Score 0 - 3: 2.5% MACE over next 6 weeks - Discharge Home Score 4 - 6: 20.3% MACE over next 6 weeks - Admit for Clinical Observation Score 7 - 10: 72.7% MACE over next 6 weeks - Early Invasive Strategies (KIM PICKENS APRN) Current Medications: Current Medications Medications (Trade) Dose Ordered Sig/Rachana Start Time Stop Time Status Last Admin Dose Admin Albuterol/ Ipratropium (Duoneb) 9 ml 1X ONCE 11/20/20 13:45 11/20/20 13:46 UNV Methylprednisolone Sodium Succinate (SOLU-Medrol 125MG VIAL) 60 mg 1X ONCE 11/20/20 13:45 11/20/20 13:46 UNV (KIM PICKENS APRN) Allergies: Allergies: Allergies Coded Allergies Type Severity Reaction Last Updated Verified No Known Drug Allergies 11/26/19 No (KIM PICKENS APRN) Physical Exam: PE: Constitutional: Well developed, well nourished, no acute distress, non-toxic appearance. [] HENT: Normocephalic, atraumatic, bilateral external ears normal, oropharynx moist, no oral exudates, nose normal. [] Eyes: PERRLA, EOMI, conjunctiva normal, no discharge. [] Neck: Normal range of motion, no tenderness, supple, no stridor. [] Cardiovascular:Heart rate regular rhythm, no murmur [] Lungs & Thorax: Bilateral breath sounds diminished throughout to auscultation [] Abdomen: Bowel sounds normal, soft, no tenderness, no masses, no pulsatile masses. [] Skin: Warm, dry, no erythema, no rash. [] Back: No tenderness, no CVA tenderness. [] Extremities: No tenderness, no cyanosis, no clubbing, ROM intact, no edema. [] Neurologic: Alert and oriented X 3, normal motor function, normal sensory function, no focal deficits noted. [] Psychologic: Affect normal, judgement normal, mood normal. [] (KIM PICKENS APRN) Current Patient Data: Vital Signs: Vital Signs Date Time Temp Pulse Resp B/P (MAP) Pulse Ox O2 Delivery O2 Flow Rate FiO2 11/20/20 13:15 98.7 102 32 168/103 (124) 99 Nasal Cannula 2.0 98.7 (KIM PICKENS APRN) EKG: EK and read by sinus tachycardia and no STEMI 1402 and read by Sinus Rhythm and no STEMI (KIM PICKENS APRN) Radiology/Procedures: Radiology/Procedures: [] Impression: [facility] [address] [place] [address] IMAGING REPORT Signed PATIENT: DONNA CRABTREE AACCOUNT: [id number] : 1945 LOCATION: ER AGE: 74 SEX: F EXAM STATUS: REG ER ORD. PHYSICIAN: KIM PICKENS APRN REASON: soa, requiring more oxygen PROCEDURE: PORTABLE CHEST 1V AP chest. HISTORY: Short of air AP view was taken of the chest. There are changes of chronic obstructive pulmonary disease. There are no acute infiltrates. Heart is normal in size. There is scarring in the left lateral right upper lobe unchanged from an old study. IMPRESSION: 1. COPD. 2. No acute infiltrates. Electronically signed by: Ryan Briggs MD (11/20/2020 2:11 PM) [id number] DICTATED and SIGNED BY: RYAN BRIGGS MD DATE: 11/20/20 [id number] 0 (KIM PICKENS APRN) Course & Med Decision Making: Course & Med Decision Making Pertinent Labs and Imaging studies reviewed. (See chart for details) COVID-19 CRITERIA: The patient was evaluated during the global COVID-19 pandemic, and that diagnosis was suspected/considered upon their initial presentation. Their evaluation, treatment and testing was consistent with current guidelines for patients who present with complaints or symptoms that may be related to COVID-19. See HPI. Alert and oriented x4. Speaks in full clear sentences. Skin pink warm and dry. No extremity edema. Patient is tachypneic. Lungs are diminished throughout all lobes. Chest xray shows no acute findings. Patient receiving solumedrol and 3 duo nebs in the ED. I spoke to Dr Iverson for admission. [] (KIM PICKENS APRN) Course & Med Decision Making I have reviewed and was available for consultation in the emergency department for this patient that was seen by midlevel provider. Agree with plan. Cam Gamble DO (CAM GAMBLE DO) Dragon Disclaimer: Dragon Disclaimer: This electronic medical record was generated, in whole or in part, using a voice recognition dictation system. (KIM PICKENS APRN) COVID-19 Patient Risks: Age 65 or older: Yes Sign of co-morbidity: Yes Exp to person + for COVID: No Exp to PUI: No Travel from affected area: No Lower respiratory symptoms: Yes Fever: No Other: No (KIM PICKENS APRN) PPE Use: Full PPE with N95 mask or PAPR: Yes (KIM PICKENS APRN) Departure Departure Impression: Primary Impression: COPD exacerbation Disposition: ADMITTED INPATIENT Admitting Physician: MULU (KIM PICKENS APRN) Condition: STABLE Referrals: RAMYA BRANDON MD (PCP) KIM PICKENS APRN Nov 20, 2020 14:01 CAM GAMBLE DO Nov 20, 2020 16:07
[2020-11-20 14:12] LABS: BASE EXCESS COOX 11 mmol/L (-3-3); HCO3 COOX 38 mmol/L (21-28); METHEMOGLOBIN 0.5 % (0.0-1.9); OXYHEMOGLOBIN 97.1 %; PO2 COOX 116 mmHg (65-108); SAT O2 COOX 98 % (92-99)
[2020-11-20 14:13] LABS: CALCIUM 9.3 mg/dL (8.5-10.1); CREATININE 0.6 mg/dL (0.6-1.0); GFR 98.3; POTASSIUM 4.4 mmol/L (3.5-5.1)
--- NOTE | 2020-11-20 14:13 | RAD ---
AP chest. HISTORY: Short of air AP view was taken of the chest. There are changes of chronic obstructive pulmonary disease. There are no acute infiltrates. Heart is normal in size. There is scarring in the left lateral right upper lob e unchanged from an old study. IMPRESSION: 1. COPD. 2. No acute infiltrates. Electronically signed by: Ryan Briggs MD (11/20/2020 2:11 PM) [id number]
[2020-11-20 14:18] LABS: ALBUMIN/GLOBULIN RATIO 0.7 (1.0-1.7); TOTAL BILIRUBIN 0.3 mg/dL (0.2-1.0); TOTAL PROTEIN 7.6 g/dL (6.4-8.2)
[2020-11-20] MEDS ORDERED: ACETAMINOPHEN 325 MG TABLET. PO PRN ×2 (14:45→17:00)
[2020-11-20 14:58] LABS: PCO2 COOX 64 mmHg (35-46)
--- NOTE | 2020-11-20 14:59 | PDOC1 ---
History and Physical Date of Admission Date of Admission DATE: 11/20/20 TIME: 14:58 Identification/Chief Complaint Chief Complaint SHORTNESS OF BREATH, WHEEZING History of Present Illness History of Present Illness 74 year old female who presented with worsening shortness of breath for the last 2 weeks. today very short of breath. off her oxygen, her O2 sat was only 76% IN the ED room patient's respirations were 32 and her oxygen saturation was 90% on the 2.5 L. she is increasingly SHORT OF AIR, HAS A POOR APPETITE , and is losing weight She has a history of COPD, high cholesterol, appendectomy. // had both of her Covid vaccines. ABG C/W HYPERCAPNEA denies chest pain, fever, headache, dizziness, syncope, focal weakness, abdominal pain, nausea, vomiting, diarrhea, numbness tingling was given 4 breathing treatments in ER ,did not have much improvement. WILL ADMIT, CONSULT PULM, KEEP SPO2 < 92% AVOID HYPERCAPNEA, trial of iv steroids Past Medical History Past Medical History Past Medical History Past Surgical History: Appendectomy, Other Additional Past Surgical Histo: EAR TUMOR, MASECTOMY Smoking Status: Former Smoker PATIENT: DONNA CRABTREE AACCOUNT: [id number] : 1945 LOCATION: SURG AGE: 73 SEX: F EXAM STATUS: REG [facility] ORD. PHYSICIAN: DENNIS VALERO MD REASON: BREAST CANCER LEFT PROCEDURE: SENTINEL NODE INJECTION Examination: SENTINEL NODE INJECTION History: Reason: BREAST CANCER LEFT / Comparison/Correlation: None Findings: Risks and benefits of injection for sentinel node purposes were discussed with the patient and informed consent was obtained. Cleansing with Betadine at the left upper breast about the areola was performed. Subsequently, lidocaine spray was was utilized. 1 mCi technetium technetium 99m Lymphoseek was then intradermally administered approximately 1 cm from the areola at the 12:00 region. The technologist subsequently had massage the site of injection. No images acquired. Impression: Successful intradermal administration of radiotracer. Electronically signed by: Itz Darby MD (11/27/2019 12:42 PM) [id number] DICTATED and SIGNED BY: ITZ DARBY MD DATE: 11/27/19 1242 FHX COPD Left breast ultrasound-guided core needle biopsy of a 2 cm mass in the superior left breast Family History Family History: High Cholestrol, Hypertension Social History Smoke: Quit ALCOHOL: none Drugs: None Current Problem List Problem List Problems Medical Problems: (1) COPD exacerbation Status: Acute Current Medications Current Medications Current Medications Albuterol/ Ipratropium (Duoneb) 9 ml 1X ONCE NEB Last administered on 11/20/20at 14:09; Start 11/20/20 at 13:45; Stop 11/20/20 at 13:51; Status DC Methylprednisolone Sodium Succinate (SOLU-Medrol 125MG VIAL) 60 mg 1X ONCE IV Last administered on 11/20/20at 14:01; Start 11/20/20 at 13:45; Stop 11/20/20 at 13:51; Status DC Acetaminophen (Tylenol) 650 mg PRN Q4HRS PRN PO FEVER > 100.3'F; Start 11/20/20 at 14:45; Stop 11/21/20 at 14:44 Active Scripts Active Hydrocodone-Apap 5-325 (Hydrocodone Bit/Acetaminophen) 1 Tab Tablet 1 Tab PO PRN Q4HRS PRN Reported Calcium Carbonate 500 Mg Tablet 1 Tab PO DAILY 30 Days Ventolin Hfa Inhaler (Albuterol Sulfate) 18 Gm Hfa.aer.ad 2 Puff INH Q4HRS Simvastatin 20 Mg Tablet 1 Tab PO QHS Trazodone Hcl 50 Mg Tablet 50 Mg PO HS Symbicort 160-4.5 Mcg Inhaler (Budesonide/Formoterol Fumarate) 10.2 Gm Hfa.aer.ad 1 Puff IH BID Lisinopril 20 Mg Tablet 20 Mg PO DAILY Allergies Allergies: Coded Allergies: No Known Drug Allergies (Unverified , 11/26/19) ROS General: YES: Fatigue, Malaise, Appetite; No: Chills, Night Sweats, Other PSYCHOLOGICAL ROS: YES: Anxiety; No: Behavioral Disorder, Concentration difficultie, Decreased libido, Depression, Disorientation, Hallucinations, Hostility, Irritablity, Memory difficulties, Mood Swings, Obsessive thoughts, Physical abuse, Sexual abuse, Sleep disturbances, Suicidal ideation, Other Eyes: No Blurry vision, No Decreased vision, No Double vision, No Dry eyes, No Excessive tearing, No Eye Pain, No Itchy Eyes, No Loss of vision, No Photophobia, No Scotomata, No Uses contacts, No Uses glasses, No Other HEENT: No: Heacaches, Visual Changes, Hearing change, Nasal congestion, Nasal discharge, Oral lesions, Sinus pain, Sore Throat, Epistaxis, Sneezing, Snoring, Tinnitus, Vertigo, Vocal changes, Other ALLERGY AND IMMUNOLOGY: No: Hives, Insect Bite Sensitivity, Itchy/Watery Eyes, Nasal Congestion, Post Nasal Drip, Seasonal Allergies, Other Hematological and Lymphatic: No: Bleeding Problems, Blood Clots, Blood Transfusions, Brusing, Night Sweats, Pallor, Swollen Lymph Nodes, Other ENDOCRINE: No: Breast Changes, Galactorrhea, Hair Pattern Changes, Hot Flashes, Malaise/lethargy, Mood Swings, Palpitations, Polydipsia/polyuria, Skin Changes, Temperature Intolerance, Unexpected Weight Changes, Other Breast: No New/Changing Breast Lumps, No Nipple changes, No Nipple discharge, No Other Respiratory: YES: Cough, Shortness of breath, SOB with excertion, Tachypnea Cardiovascular: No Chest Pain, No Palpitations, No Orthopnea, No Paroxysmal Noc. Dyspnea, No Edema, No Lt Headedness, No Other Gastrointestinal: No Nausea, No Vomiting, No Abdominal Pain, No Diarrhea, No Constipation, No Melena, No Hematochezia, No Other Genitourinary: No Dysuria, No Frequency, No Incontinence, No Hematuria, No Retention, No Discharge, No Urgency, No Pain, No Flank Pain, No Other, No , No , No , No , No , No , No Musculoskeletal: Yes Joint Stiffness; No Gait Disturbance, No Joint Pain, No Joint Swelling, No Muscle Pain, No Muscular Weakness, No Pain In:, No Swelling In:, No Other Neurological: No Behavorial Changes, No Bowel/Bladder ControlChng, No Confusion, No Dizziness, No Gait Disturbance, No Headaches, No Impaired Coord/balance, No Memory Loss, No Numbness/Tingling, No Seizures, No Speech Problems, No Tremors, No Visual Changes, No Weakness, No Other Skin: No Dry Skin, No Eczema, No Hair Changes, No Lumps, No Mole Changes, No Mottling, No Nail Changes, No Pruritus, No Rash, No Skin Lesion Changes, No Other, No Acne Physical Exam Physical Exam Constitutional: Well developed, well nourished, mild acute distress, non-toxic appearance. supraclavicular wasting noted bilaterally [] HENT: Normocephalic, atraumatic, bilateral external ears normal, oropharynx moist, no oral exudates, nose normal. [] Eyes: PERRLA, EOMI, conjunctiva normal, no discharge. [] Neck: Normal range of motion, no tenderness, supple, no stridor. [] Cardiovascular:Heart rate regular rhythm, no murmur [] Lungs & Thorax: Bilateral breath sounds diminished throughout to auscultation [] Abdomen: Bowel sounds normal, soft, no tenderness, no masses, no pulsatile masses. [] Skin: Warm, dry, no erythema, no rash. [] Back: No tenderness, no CVA tenderness. [] Extremities: No tenderness, no cyanosis, no clubbing, ROM intact, no edema. [] Neurologic: Alert and oriented X 3, normal motor function, normal sensory function, no focal deficits noted. [] Psychologic: Affect normal, judgment normal, mood normal. [] General: Oriented X3, Cooperative HEENT: Atraumatic, EOMI, Mucous membr. moist/pink Heart: RRR Breasts: Not examined Abdomen: Normal bowel sounds, Soft, Other (thin) Rectal Exam: not examined PELVIC: Examination not indicated Extremities: No cyanosis Neuro: Normal speech, Strength at 5/5 X4 ext, Cranial nerves 3-12 NL Psych/Mental Status: Mental status NL, Mood NL Vitals Vitals Vital Signs Date Time Temp Pulse Resp B/P (MAP) Pulse Ox O2 Delivery O2 Flow Rate FiO2 11/20/20 14:19 98 Nasal Cannula 2.5 11/20/20 14:02 90 24 157/73 (101) 11/20/20 13:15 98.7 98.7 Labs Labs Laboratory Tests Test 11/20/20 13:35 11/20/20 13:43 White Blood Count 6.9 x10^3/uL (4.0-11.0) Red Blood Count 3.72 x10^6/uL (3.50-5.40) Hemoglobin 12.3 g/dL (12.0-15.5) Hematocrit 36.7 % (36.0-47.0) Mean Corpuscular Volume 99 fL (79-100) Mean Corpuscular Hemoglobin 33 pg (25-35) Mean Corpuscular Hemoglobin Concent 34 g/dL (31-37) Red Cell Distribution Width 11.5 % (11.5-14.5) Platelet Count 236 x10^3/uL (140-400) Neutrophils (%) (Auto) 73 % (31-73) Lymphocytes (%) (Auto) 12 % (24-48) Monocytes (%) (Auto) 13 % (0-9) Eosinophils (%) (Auto) 2 % (0-3) Basophils (%) (Auto) 1 % (0-3) Neutrophils # (Auto) 5.1 x10^3/uL (1.8-7.7) Lymphocytes # (Auto) 0.8 x10^3/uL (1.0-4.8) Monocytes # (Auto) 0.9 x10^3/uL (0.0-1.1) Eosinophils # (Auto) 0.1 x10^3/uL (0.0-0.7) Basophils # (Auto) 0.0 x10^3/uL (0.0-0.2) Sodium Level 131 mmol/L (136-145) Potassium Level 4.4 mmol/L (3.5-5.1) Chloride Level 91 mmol/L (98-107) Carbon Dioxide Level 37 mmol/L (21-32) Anion Gap 3 (6-14) Blood Urea Nitrogen 9 mg/dL (7-20) Creatinine 0.6 mg/dL (0.6-1.0) Estimated GFR (Cockcroft-Gault) 98.3 BUN/Creatinine Ratio 15 (6-20) Glucose Level 174 mg/dL (70-99) Calcium Level 9.3 mg/dL (8.5-10.1) Total Bilirubin 0.3 mg/dL (0.2-1.0) Aspartate Amino Transf (AST/SGOT) 19 U/L (15-37) Alanine Aminotransferase (ALT/SGPT) 22 U/L (14-59) Alkaline Phosphatase 110 U/L (46-116) Troponin I Quantitative < 0.017 ng/mL (0.000-0.055) OF-Oli-E-Type Natriuretic Peptide 612 pg/mL (0-124) Total Protein 7.6 g/dL (6.4-8.2) Albumin 3.0 g/dL (3.4-5.0) Albumin/Globulin Ratio 0.7 (1.0-1.7) O2 Saturation 98 % (92-99) Arterial Blood pH 7.39 (7.35-7.45) Arterial Blood pCO2 at Patient Temp 64 mmHg (35-46) Arterial Blood pO2 at Patient Temp 116 mmHg (65-108) Arterial Blood HCO3 38 mmol/L (21-28) Arterial Blood Base Excess 11 mmol/L (-3-3) Oxyhemoglobin 97.1 % Methemoglobin 0.5 % (0.0-1.9) Carbon Monoxide, Quantitative 0.3 % (0.0-1.9) FiO2 2.5l n.c. Laboratory Tests Test 11/20/20 13:35 11/20/20 13:43 White Blood Count 6.9 x10^3/uL (4.0-11.0) Red Blood Count 3.72 x10^6/uL (3.50-5.40) Hemoglobin 12.3 g/dL (12.0-15.5) Hematocrit 36.7 % (36.0-47.0) Mean Corpuscular Volume 99 fL (79-100) Mean Corpuscular Hemoglobin 33 pg (25-35) Mean Corpuscular Hemoglobin Concent 34 g/dL (31-37) Red Cell Distribution Width 11.5 % (11.5-14.5) Platelet Count 236 x10^3/uL (140-400) Neutrophils (%) (Auto) 73 % (31-73) Lymphocytes (%) (Auto) 12 % (24-48) Monocytes (%) (Auto) 13 % (0-9) Eosinophils (%) (Auto) 2 % (0-3) Basophils (%) (Auto) 1 % (0-3) Neutrophils # (Auto) 5.1 x10^3/uL (1.8-7.7) Lymphocytes # (Auto) 0.8 x10^3/uL (1.0-4.8) Monocytes # (Auto) 0.9 x10^3/uL (0.0-1.1) Eosinophils # (Auto) 0.1 x10^3/uL (0.0-0.7) Basophils # (Auto) 0.0 x10^3/uL (0.0-0.2) Sodium Level 131 mmol/L (136-145) Potassium Level 4.4 mmol/L (3.5-5.1) Chloride Level 91 mmol/L (98-107) Carbon Dioxide Level 37 mmol/L (21-32) Anion Gap 3 (6-14) Blood Urea Nitrogen 9 mg/dL (7-20) Creatinine 0.6 mg/dL (0.6-1.0) Estimated GFR (Cockcroft-Gault) 98.3 BUN/Creatinine Ratio 15 (6-20) Glucose Level 174 mg/dL (70-99) Calcium Level 9.3 mg/dL (8.5-10.1) Total Bilirubin 0.3 mg/dL (0.2-1.0) Aspartate Amino Transf (AST/SGOT) 19 U/L (15-37) Alanine Aminotransferase (ALT/SGPT) 22 U/L (14-59) Alkaline Phosphatase 110 U/L (46-116) Troponin I Quantitative < 0.017 ng/mL (0.000-0.055) KV-Rqk-L-Type Natriuretic Peptide 612 pg/mL (0-124) Total Protein 7.6 g/dL (6.4-8.2) Albumin 3.0 g/dL (3.4-5.0) Albumin/Globulin Ratio 0.7 (1.0-1.7) O2 Saturation 98 % (92-99) Arterial Blood pH 7.39 (7.35-7.45) Arterial Blood pCO2 at Patient Temp 64 mmHg (35-46) Arterial Blood pO2 at Patient Temp 116 mmHg (65-108) Arterial Blood HCO3 38 mmol/L (21-28) Arterial Blood Base Excess 11 mmol/L (-3-3) Oxyhemoglobin 97.1 % Methemoglobin 0.5 % (0.0-1.9) Carbon Monoxide, Quantitative 0.3 % (0.0-1.9) FiO2 2.5l n.c. Images Images . FROZEN SECTION GROSS DESCRIPTION: A. The specimen is received fresh for intraoperative consultation and is designated "sentinel lymph node #1 hot and blue". This consists of a segment of yellow, fatty tissue showing focal bluish discoloration, measuring up to 2.0 x 1.2 cm. Sectioning reveals a small, yellow-finley lymph node showing pale bluish discoloration, measuring up to 0.7 cm. This is submitted for frozen section as FSA1. The tissue remaining from frozen section is submitted for permanent sections as A1. . B. The specimen is received fresh for intraoperative consultation and is designated "sentinel lymph node #2 hot and blue". This consists of a segment of yellow, fatty tissue measuring up to 2.0 x 1.5 cm. Sectioning reveals a yellow-pink lymph node measuring up to 1.6 cm and showing focal pale bluish discoloration. This is submitted for frozen section as FSB1. The tissue remaining from frozen section is submitted for permanent sections as B1. . C. The specimen is received fresh for intraoperative consultation and is designated "sentinel lymph node #3 hot". This consists of a segment of yellow-red, fatty tissue measuring up to 1.0 cm in greatest dimension. Sectioning reveals a pink-yellow lymph node measuring up to 0.6 cm. This is submitted for frozen section as FSC1. The tissue remaining from frozen section is submitted for permanent sections as C1. (JPM/db; 11/27/2019) LENO/JACI . 02 Diagnosis: A. Left sentinel lymph node #1 hot and blue: - Negative for tumor. . B. Left sentinel lymph node #2 hot and blue: - Negative for tumor. . C. Left sentinel lymph node #3 hot: - Negative for tumor. . D. Breast, left mastectomy: - RESIDUAL INVASIVE DUCTAL CARCINOMA, HISTOLOGIC GRADE 3, FORMING A STELLATE MASS DEEP TO THE NIPPLE MEASURING UP TO 2.2 CM IN GREATEST DIMENSION. - CLOSEST DEEP MARGIN OF RESECTION NEGATIVE FOR TUMOR. - NO LYMPHOVASCULAR TUMOR INVASION IDENTIFIED. - NIPPLE NEGATIVE FOR TUMOR. - PREVIOUS BIOPSY SITE CHANGES WITHIN TUMOR, FOCAL. - Fibrocystic and fibroadenomatous changes, with focal coarse calcifications adjacent to tumor. - Sclerosing adenosis, multifocal. . . Surgical Pathology Cancer Case Summary Protocol posting date: April 2019 . INVASIVE CARCINOMA OF THE BREAST: Resection Procedure ___ Total mastectomy (including nipple-sparing and skin-sparing mastectomy) Specimen Laterality ___ Left + Tumor Site + ___ Central Tumor Size ___ Greatest dimension of largest invasive focus >1 mm: 22 mm Histologic Type ___ Invasive carcinoma of no special type (ductal) Histologic Grade ([place] Histologic Score) Glandular (Acinar)/Tubular Differentiation ___ Score 3 (<10% of tumor area forming glandular/tubular structures) Nuclear Pleomorphism ___ Score 3 (vesicular nuclei, often with prominent nucleoli, exhibiting marked variation in size and shape, occasionally with very large and bizarre forms) Mitotic Rate ___ Score 2 Overall Grade ___ Grade 3 (scores of 8 or 9) + Tumor Focality + ___ Single focus of invasive carcinoma Ductal Carcinoma In Situ (DCIS) ___ Not identified Margins Invasive Carcinoma Margins ___ Uninvolved by invasive carcinoma Distance from closest margin: 20 mm + Specify closest margin: Posterior (deep) margin Regional Lymph Nodes ___ Uninvolved by tumor cells Total Number of Lymph Nodes Examined: 3 Number of [place] Nodes Examined: 3 Treatment Effect in the Breast ___ No known presurgical therapy Treatment Effect in the Lymph Nodes ___ Not applicable + Lymphovascular Invasion + ___ Not identified + Dermal Lymphovascular Invasion + ___ Not identified PATIENT: DONNA CRABTREE AACCOUNT: [id number] : 1945 LOCATION: ER AGE: 74 SEX: F EXAM STATUS: REG ER ORD. PHYSICIAN: CIELO PICKENS APRN REASON: soa, requiring more oxygen PROCEDURE: PORTABLE CHEST 1V AP chest. HISTORY: Short of air AP view was taken of the chest. There are changes of chronic obstructive pulmonary disease. There are no acute infiltrates. Heart is normal in size. There is scarring in the left lateral right upper lobe unchanged from an old study. IMPRESSION: 1. COPD. 2. No acute infiltrates. Electronically signed by: Ryan Briggs MD (11/20/2020 2:11 PM) [id number] DICTATED and SIGNED BY: RYAN BRIGGS VTE Prophylaxis Ordered VTE Prophylaxis Devices: No VTE Pharmacological Prophylaxi: Yes Assessment/Plan Assessment/Plan Impression: COPD exacerbation Acute hypercapnic respiratory failure abnormal weight loss INVASIVE CARCINOMA OF THE BREAST:, LEFT ADMITTED consult pulm duonebs o2 support tapering iv solumedrol 100MG IV Q 8 HRS dvt prophylaxis GI PROPHYLAXIS DECREASE O2 TO 1.5 LITERS, CHECK ABG IN 2 HRS D/W Cielo in ER Justifications for Admission Other Justification SENTHIL GARCIA MD Nov 20, 2020 14:59
[2020-11-20 16:02] LABS: BILIRUBIN,URINE NEGATIVE (NEG); CLARITY,URINE CLEAR; COLOR,URINE YELLOW; NITRITE,URINE NEGATIVE (NEG); PH,URINE 7.5 (<5.0-8.0); PROTEIN,URINE NEGATIVE (NEG-TRACE); UROBILINOGEN,URINE 0.2 mg/dL (0.2 mg/dL)
[2020-11-20 16:29] LABS: BACTERIA,URINE MODERATE /HPF (0-FEW); WBC,URINE >40 /HPF (0-4)
[2020-11-20 16:30] LABS: RBC,URINE 0 /HPF (0-2)
[2020-11-20] MEDS ORDERED: DOCUSATE SODIUM 100 MG CAPSULE. PO PRN (17:00)
[2020-11-20] MEDS ORDERED: 0.9 % SODIUM CHLORIDE 10 ML DISP.SYRIN. IV PRN (17:00)
[2020-11-20] MEDS ORDERED: guaiFENesin ORAL 200 MG/10 ML LIQUID. PO PRN (17:00)
[2020-11-20] MEDS ORDERED: MAG HYDROX/ALUMINUM HYD/SIMETH 30 ML ORAL.SUSP PO PRN (17:00)
[2020-11-20] MEDS ORDERED: ONDANSETRON PF 4 MG/2 ML VIAL. IV PRN (17:00)
--- NOTE | 2020-11-20 17:28 | EKG ---
[facility] [address] [place] [address] Test Date: 2020-11-20 Test Time: 13:22:52 Pat Name: DONNA CRABTREE Department: Room: Gender: F [employer]: : 1945 Requested By: KIM PICKENS Order Number: [id number] Reading MD: Measurements Intervals [place] Rate: 103 P: 98 AK: 150 QRS: 60 QRSD: 80 T: 88 QT: 306 QTc: 403 Interpretive Statements SINUS TACHYCARDIA LEFT ATRIAL ABNORMALITY QRS(T) CONTOUR ABNORMALITY CONSISTENT WITH ANTEROSEPTAL INFARCT AGE UNDETERMINED ABNORMAL ECG RI6.02 No previous ECG available for comparison
[2020-11-20] MEDS: PANTOPRAZOLE 40 MG TABLET.DR. PO SCH (18:31)
[2020-11-20] MEDS: DOXYCYCLINE HYCLATE 100 MG in IV DEXTROSE 5% 100ML 100 ML IV SCH (18:33)
[2020-11-20 19:00] VITALS: BP 147/71
[2020-11-20] MEDS ORDERED: IPRATRPIUM/ALBUTEROL 0.5/2.5MG 3 ML NEBU. NEB SCH (20:00)
[2020-11-20] MEDS: BUDESONIDE 0.5 MG/2 ML NEBU. NEB SCH (20:38)
[2020-11-20] MEDS ORDERED: traZODone 50 MG TABLET. PO SCH (21:00)
[2020-11-20] MEDS: traZODone 50 MG TABLET. PO SCH (21:45)
[2020-11-20] MEDS: methylPREDNISolone SOD SUCC PF 125 MG/2 ML VIAL. IV SCH (21:45)
[2020-11-20] MEDS: SYMBICORT INH SCH (21:45)
[2020-11-20] MEDS: SIMVASTATIN 20 MG TABLET PO SCH (21:46)
[2020-11-20] MEDS: ENOXAPARIN 40 MG/0.4 ML SYRINGE. SQ SCH (21:46)
[2020-11-20 23:00] VITALS: BP 121/58
[2020-11-21] VITALS (7 sets, daily range): BP systolic 121–159; BP diastolic 58–84
[2020-11-21] MEDS ORDERED: FLU VACC QUAD 21-22 (6MOS+) PF 0.5 ML SYRINGE. VAX IM ONE (01:00)
[2020-11-21] MEDS: methylPREDNISolone SOD SUCC PF 125 MG/2 ML VIAL. IV SCH ×3 (05:54→21:14)
[2020-11-21] MEDS: BUDESONIDE 0.5 MG/2 ML NEBU. NEB SCH (06:54)
[2020-11-21 07:33] LABS: BASO % 0 % (0-3); EOS % 0 % (0-3); HEMATOCRIT 37.5 % (36.0-47.0); HEMOGLOBIN 12.7 g/dL (12.0-15.5); LYMPH # 0.5 x10^3/uL (1.0-4.8); LYMPH % 14 % (24-48); MEAN CORPUSCULAR HEMOGLOBIN 34 pg (25-35); MEAN CORPUSCULAR HGB CONC 34 g/dL (31-37); MEAN CORPUSCULAR VOLUME 100 fL (79-100); MONO # 0.1 x10^3/uL (0.0-1.1); MONO % 2 % (0-9); NEUT # 2.8 x10^3/uL (1.8-7.7); NEUT % 84 % (31-73); PLATELET COUNT 237 x10^3/uL (140-400); RED BLOOD COUNT 3.76 x10^6/uL (3.50-5.40); RED CELL DISTRIBUTION WIDTH 11.4 % (11.5-14.5); WHITE BLOOD COUNT 3.4 x10^3/uL (4.0-11.0)
[2020-11-21 07:46] LABS: CALCIUM 9.7 mg/dL (8.5-10.1); CREATININE 0.5 mg/dL (0.6-1.0); GFR 121.3; POTASSIUM 4.6 mmol/L (3.5-5.1)
--- NOTE | 2020-11-21 08:25 | CONS ---
DATE OF CONSULTATION: 11/20/2020 REASON FOR CONSULTATION: I was asked to see this 74-year-old lady for acute on chronic respiratory failure. HISTORY OF PRESENT ILLNESS: The patient has a history of 30-pack-a year smoking, quit smoking 10 years ago. She is on oxygen 2 liters per minute via nasal cannula. She has had increased shortness of breath, cough, wheezing for the past 2 weeks. She denies fever and chills. A rapid COVID is negative. PCR is pending. PAST MEDICAL HISTORY: Chronic respiratory failure, COPD, breast cancer status post mastectomy in April 2019. ALLERGIES: No known drug allergies. MEDICATIONS: Currently she is on Solu-Medrol 100 every 8, doxycycline, Lovenox, Protonix. SOCIAL HISTORY: History of 10-bnqp-sbvt smoking, quit smoking 10 years ago. FAMILY HISTORY: There is no history of lung disease. REVIEW OF SYSTEMS: As mentioned as above, other systems otherwise negative. PHYSICAL EXAMINATION: GENERAL: This is an elderly lady, in no distress. VITAL SIGNS: Her O2 saturation on 2.5 liters of oxygen is 95%, respiratory rate is 18, heart rate 75, blood pressure 145/78, temperature 98.2. HEENT: Normocephalic, atraumatic. Pupils equal, round, reactive to light. Nose is clear. Throat is clear. NECK: There is no lymphadenopathy or thyromegaly. CARDIOVASCULAR: Regular rate and rhythm. CHEST: Inspection is normal. LUNGS: There is bilateral diminished breath sounds, a few end-expiratory wheezing. ABDOMEN: Soft. Bowel sounds are good. There is no mass. EXTREMITIES: There is no edema. LYMPHATICS: There is no lymphadenopathy. NEUROLOGIC: Alert and oriented. LABORATORY DATA: WBC 6.9, hemoglobin 12.3, platelet 236. Sodium 131, potassium 4.4, chloride 91, CO2 of 37, BUN 9, creatinine 0.6. BNP 612. Troponin is less than 0.01. ABG: pH 7.39, pCO2 of 64, pO2 of 160 on 2.5 liters of oxygen. WBC 6.9, hemoglobin 12.3, platelet 236. IMAGING: Chest x-ray shows COPD, no infiltrate. IMPRESSION: 1. Acute on chronic respiratory failure secondary to acute exacerbation of chronic obstructive pulmonary disease and acute bronchitis question ella congestive heart failure. 2. Acute exacerbation of chronic obstructive pulmonary disease. 3. Acute bronchitis. 4. Elevated BNP question ella congestive heart failure. 5. Ex-smoker. 6. Breast cancer, status post mastectomy. PLAN AND RECOMMENDATIONS: 1. Titrate FiO2 to keep O2 saturation 92%. 2. Bronchodilator. 3. Change Solu-Medrol to 80 mg every 8. 4. Lovenox for DVT prophylaxis. 5. Protonix for stress ulcer prophylaxis. 6. Continue doxycycline. 7. The findings and recommendations were discussed with the patient. She understood and agreed to proceed with the plan. I have answered all of her questions. Thank you very much for allowing me to participate in care of this very nice lady. The findings and recommendations were discussed with the patient and RN. She agreed to proceed with plan and recommendation. ANTON DR: Xander TID: [id number]
[2020-11-21] MEDS: SYMBICORT INH SCH ×2 (09:00→21:00)
[2020-11-21] MEDS ORDERED: LISINOPRIL 20 MG TABLET PO SCH (09:00)
[2020-11-21] MEDS: DOXYCYCLINE HYCLATE 100 MG in IV DEXTROSE 5% 100ML 100 ML IV SCH ×2 (09:17→21:11)
[2020-11-21] MEDS: PANTOPRAZOLE 40 MG TABLET.DR. PO SCH (09:18)
[2020-11-21] MEDS: CALCIUM CARBONATE 500 MG TABLET PO SCH (09:20)
--- NOTE | 2020-11-21 17:04 | PDOC ---
GENERAL General: Patient examined chart reviewed today is hospital day 2 for this patient admitted with COPD exacerbation she tells me that she is very frightened about the thought of discharging before she has a better handle on her respiratory symptoms. She has been following with primary care only for her COPD and is wanting to establish with pulmonary. She tells me she has been on 2 L of oxygen continuously since May of this year and she just does not feel like she has been able to do what she wants to do without getting extremely short of breath. Prior to May she was able to stay very active. She has never had Covid she and her daughter are fully vaccinated. She lives with her daughter who works here at the hospital. She has a follow-up with her oncologist next week she is 1 year out from breast cancer treatments. All other systems were reviewed and negative. Time spent today is 30 minutes with greater than 50% in counseling and coordination of care most of which in discussion with patient. Problems: (1) COPD exacerbation VITAL SIGNS Vital Signs/I&O: Vital Signs Date Time Temp Pulse Resp B/P (MAP) Pulse Ox O2 Delivery O2 Flow Rate FiO2 11/21/20 15:00 98.5 100 18 143/81 (101) 95 Nasal Cannula 2.5 98.5 I & O 11/20/20 11/20/20 11/21/20 15:00 23:00 07:00 Intake Total 100 ml 600 ml Output Total 0 ml Balance 100 ml 600 ml In general the patient is pleasant alert and oriented x3 no acute distress HEENT exam is unremarkable for acute abnormality Chest bilateral equal air entry though diminished throughout patient is coughing throughout the visit wheezing at the bilateral bases Heart S1-S2 normal regular rate and rhythm no murmurs or gallops are noted Abdomen soft nontender nondistended no masses organomegaly noted Extremity exam is unremarkable for acute abnormality ALLERGIES Allergies: Allergies Coded Allergies Type Severity Reaction Last Updated Verified No Known Drug Allergies 11/26/19 No MEDS Medications: Current Medications Medications (Trade) Dose Ordered Sig/Rachana Start Time Stop Time Status Last Admin Dose Admin Acetaminophen (Tylenol) 650 mg PRN Q4HRS PRN 11/20/20 17:00 Al Hydroxide/Mg Hydroxide (Mylanta Plus Xs) 30 ml PRN DAILY PRN 11/20/20 17:00 Albuterol Sulfate (Ventolin Neb Soln) 2.5 mg PRN Q4HRS PRN 11/21/20 00:30 Albuterol/ Ipratropium (Duoneb) 3 ml Q4HRS 11/20/20 20:00 11/21/20 00:10 DC Budesonide (Pulmicort) 0.5 mg RTBID 11/20/20 20:00 Calcium Carbonate/ Glycine (Oscal) 500 mg DAILY 11/21/20 09:00 11/21/20 09:20 Docusate Sodium (Colace) 100 mg PRN BID PRN 11/20/20 17:00 Doxycycline Hyclate 100 mg/ Dextrose 100 ml @ 50 mls/hr Q12HR 11/20/20 18:00 11/21/20 09:17 Enoxaparin Sodium (Lovenox 40mg Syringe) 40 mg Q24H 11/20/20 21:00 11/20/20 21:46 Guaifenesin (Robitussin) 200 mg PRN Q4HRS PRN 11/20/20 17:00 Influenza Virus Vaccine Quadrival (Flulaval Quad [id number] Syringe) 0.5 ml ONCE ONCE 11/21/20 01:00 11/21/20 01:01 DC 11/21/20 12:11 Lactobacillus Rhamnosus (Culturelle) 1 cap BID 11/21/20 21:00 Lisinopril (Prinivil) 20 mg DAILY 11/21/20 09:00 11/20/20 20:29 DC Methylprednisolone Sodium Succinate (SOLU-Medrol 125MG VIAL) 80 mg Q8HRS 11/21/20 14:00 11/21/20 15:54 Non-Formulary Medication (NON FORMULARY ITEM (Symbicort 160 mcg/4.5 mcg)) 1 ea BID 11/20/20 21:00 11/21/20 09:00 Ondansetron HCl (Zofran) 4 mg PRN Q4HRS PRN 11/20/20 17:00 Pantoprazole Sodium (Protonix) 40 mg DAILYAC 11/20/20 17:30 11/21/20 09:18 Simvastatin (Zocor) 20 mg QHS 11/20/20 21:00 11/20/20 21:46 Sodium Chloride (Normal Saline Flush) 3 ml QSHIFT PRN 11/20/20 17:00 Trazodone HCl (Desyrel) 50 mg HS 11/20/20 21:00 UNV Current Medications Medications (Trade) Dose Ordered Sig/Rachana Route PRN Reason Start Time Stop Time Status Last Admin Dose Admin Calcium Carbonate/ Glycine (Oscal) 500 mg DAILY PO 11/21/20 09:00 11/21/20 09:20 Simvastatin (Zocor) 20 mg QHS PO 11/20/20 21:00 11/20/20 21:46 Enoxaparin Sodium (Lovenox 40mg Syringe) 40 mg Q24H SQ 11/20/20 21:00 11/20/20 21:46 Methylprednisolone Sodium Succinate (SOLU-Medrol 125MG VIAL) 100 mg Q8HRS IV 11/20/20 22:00 11/21/20 07:09 DC 11/21/20 05:54 Pantoprazole Sodium (Protonix) 40 mg DAILYAC PO 11/20/20 17:30 11/21/20 09:18 Doxycycline Hyclate 100 mg/ Dextrose 100 ml @ 50 mls/hr Q12HR IV 11/20/20 18:00 11/21/20 09:17 Trazodone HCl (Desyrel) 50 mg QHS PO 11/20/20 21:00 11/20/20 21:45 Non-Formulary Medication (NON FORMULARY ITEM (Symbicort 160 mcg/4.5 mcg)) 1 ea BID INH 11/20/20 21:00 11/21/20 09:00 Influenza Virus Vaccine Quadrival (Flulaval Quad [id number] Syringe) 0.5 ml ONCE ONCE VAX IM 11/21/20 01:00 11/21/20 01:01 DC 11/21/20 12:11 Methylprednisolone Sodium Succinate (SOLU-Medrol 125MG VIAL) 80 mg Q8HRS IV 11/21/20 14:00 11/21/20 15:54 LAB Lab: Laboratory Tests Test 11/21/20 06:50 White Blood Count 3.4 x10^3/uL (4.0-11.0) L Red Blood Count 3.76 x10^6/uL (3.50-5.40) Hemoglobin 12.7 g/dL (12.0-15.5) Hematocrit 37.5 % (36.0-47.0) Mean Corpuscular Volume 100 fL (79-100) Mean Corpuscular Hemoglobin 34 pg (25-35) Mean Corpuscular Hemoglobin Concent 34 g/dL (31-37) Red Cell Distribution Width 11.4 % (11.5-14.5) L Platelet Count 237 x10^3/uL (140-400) Neutrophils (%) (Auto) 84 % (31-73) H Lymphocytes (%) (Auto) 14 % (24-48) L Monocytes (%) (Auto) 2 % (0-9) Eosinophils (%) (Auto) 0 % (0-3) Basophils (%) (Auto) 0 % (0-3) Neutrophils # (Auto) 2.8 x10^3/uL (1.8-7.7) Lymphocytes # (Auto) 0.5 x10^3/uL (1.0-4.8) L Monocytes # (Auto) 0.1 x10^3/uL (0.0-1.1) Eosinophils # (Auto) 0.0 x10^3/uL (0.0-0.7) Basophils # (Auto) 0.0 x10^3/uL (0.0-0.2) Sodium Level 133 mmol/L (136-145) L Potassium Level 4.6 mmol/L (3.5-5.1) Chloride Level 93 mmol/L (98-107) L Carbon Dioxide Level 37 mmol/L (21-32) H Anion Gap 3 (6-14) L Blood Urea Nitrogen 8 mg/dL (7-20) Creatinine 0.5 mg/dL (0.6-1.0) L Estimated GFR (Cockcroft-Gault) 121.3 Glucose Level 140 mg/dL (70-99) H Calcium Level 9.7 mg/dL (8.5-10.1) Laboratory Tests 11/21/20 06:50 Laboratory Tests 11/21/20 06:50 ASSESSMENT & PLAN A&P Plan as noted above This note was created using [employer] and may have omissions and/or errors due to the nature of real-time voice automobile drivers. Justifications for Admission Other Justification SEVERE HYPERCAPNIC RESP FAILURE FREEMAN MA MD Nov 21, 2020 17:04
--- NOTE | 2020-11-21 18:25 | NUR ---
Breathing treatments made PRN as patient is using home Symbicort inhaler.
[2020-11-21] MEDS ORDERED: BUDESONIDE 0.5 MG/2 ML NEBU. NEB PRN (18:30)
--- NOTE | 2020-11-21 21:00 | NUR ---
Symbicort was done per patient at about 6pm, per pt
[2020-11-21] MEDS: LACTOBACILLUS RHAMNOSUS GG 1 CAPSULE. PO SCH (21:12)
[2020-11-21] MEDS: SIMVASTATIN 20 MG TABLET PO SCH (21:12)
[2020-11-21] MEDS: traZODone 50 MG TABLET. PO SCH (21:12)
[2020-11-21] MEDS: ENOXAPARIN 40 MG/0.4 ML SYRINGE. SQ SCH (21:13)
[2020-11-22 05:18] VITALS: BP 137/73
[2020-11-22] MEDS: methylPREDNISolone SOD SUCC PF 125 MG/2 ML VIAL. IV SCH (05:54)
[2020-11-22 07:00] VITALS: BP 141/71
[2020-11-22 07:47] LABS: BASO % 0 % (0-3); EOS % 0 % (0-3); HEMATOCRIT 34.9 % (36.0-47.0); HEMOGLOBIN 11.9 g/dL (12.0-15.5); LYMPH # 0.6 x10^3/uL (1.0-4.8); LYMPH % 7 % (24-48); MEAN CORPUSCULAR HEMOGLOBIN 34 pg (25-35); MEAN CORPUSCULAR HGB CONC 34 g/dL (31-37); MEAN CORPUSCULAR VOLUME 99 fL (79-100); MONO # 0.3 x10^3/uL (0.0-1.1); MONO % 3 % (0-9); NEUT % 90 % (31-73); PLATELET COUNT 247 x10^3/uL (140-400); RED BLOOD COUNT 3.55 x10^6/uL (3.50-5.40); RED CELL DISTRIBUTION WIDTH 11.3 % (11.5-14.5)
[2020-11-22 08:10] LABS: ALBUMIN 2.6 g/dL (3.4-5.0); ALBUMIN/GLOBULIN RATIO 0.6 (1.0-1.7); CALCIUM 9.1 mg/dL (8.5-10.1); CREATININE 0.5 mg/dL (0.6-1.0); GFR 121.3; POTASSIUM 4.3 mmol/L (3.5-5.1); TOTAL BILIRUBIN 0.2 mg/dL (0.2-1.0); TOTAL PROTEIN 6.7 g/dL (6.4-8.2)
[2020-11-22] MEDS: LACTOBACILLUS RHAMNOSUS GG 1 CAPSULE. PO SCH ×2 (08:14→20:19)
[2020-11-22] MEDS: CALCIUM CARBONATE 500 MG TABLET PO SCH (08:14)
[2020-11-22] MEDS: PANTOPRAZOLE 40 MG TABLET.DR. PO SCH (08:14)
[2020-11-22] MEDS: DOXYCYCLINE HYCLATE 100 MG in IV DEXTROSE 5% 100ML 100 ML IV SCH ×2 (08:17→20:18)
[2020-11-22] MEDS: SYMBICORT INH SCH ×2 (08:25→21:00)
--- NOTE | 2020-11-22 10:10 | PDOC ---
PULMONARY PROGRESS NOTES DATE: 11/22/20 TIME: 10:09 Subjective on 02 feels better but gets sob easily Vitals Vital Signs Date Time Temp Pulse Resp B/P (MAP) Pulse Ox O2 Delivery O2 Flow Rate FiO2 11/22/20 07:00 98.2 79 16 141/71 (94) 97 Nasal Cannula 98.2 11/21/20 20:50 2.5 ROS: No Nausea General: Alert, No acute distress HEENT: Other (nc at ) Lungs: Other (b diminished bs) Cardiovascular: S1, S2 Abdomen: Soft Neuro Exam: Alert Extremities: No Edema Skin: Warm Labs Laboratory Tests Test 11/20/20 13:35 11/20/20 13:43 11/20/20 13:45 11/20/20 15:41 White Blood Count 6.9 x10^3/uL (4.0-11.0) Red Blood Count 3.72 x10^6/uL (3.50-5.40) Hemoglobin 12.3 g/dL (12.0-15.5) Hematocrit 36.7 % (36.0-47.0) Mean Corpuscular Volume 99 fL (79-100) Mean Corpuscular Hemoglobin 33 pg (25-35) Mean Corpuscular Hemoglobin Concent 34 g/dL (31-37) Red Cell Distribution Width 11.5 % (11.5-14.5) Platelet Count 236 x10^3/uL (140-400) Neutrophils (%) (Auto) 73 % (31-73) Lymphocytes (%) (Auto) 12 % (24-48) Monocytes (%) (Auto) 13 % (0-9) Eosinophils (%) (Auto) 2 % (0-3) Basophils (%) (Auto) 1 % (0-3) Neutrophils # (Auto) 5.1 x10^3/uL (1.8-7.7) Lymphocytes # (Auto) 0.8 x10^3/uL (1.0-4.8) Monocytes # (Auto) 0.9 x10^3/uL (0.0-1.1) Eosinophils # (Auto) 0.1 x10^3/uL (0.0-0.7) Basophils # (Auto) 0.0 x10^3/uL (0.0-0.2) Sodium Level 131 mmol/L (136-145) Potassium Level 4.4 mmol/L (3.5-5.1) Chloride Level 91 mmol/L (98-107) Carbon Dioxide Level 37 mmol/L (21-32) Anion Gap 3 (6-14) Blood Urea Nitrogen 9 mg/dL (7-20) Creatinine 0.6 mg/dL (0.6-1.0) Estimated GFR (Cockcroft-Gault) 98.3 BUN/Creatinine Ratio 15 (6-20) Glucose Level 174 mg/dL (70-99) Calcium Level 9.3 mg/dL (8.5-10.1) Total Bilirubin 0.3 mg/dL (0.2-1.0) Aspartate Amino Transf (AST/SGOT) 19 U/L (15-37) Alanine Aminotransferase (ALT/SGPT) 22 U/L (14-59) Alkaline Phosphatase 110 U/L (46-116) Troponin I Quantitative < 0.017 ng/mL (0.000-0.055) XH-Hck-A-Type Natriuretic Peptide 612 pg/mL (0-124) Total Protein 7.6 g/dL (6.4-8.2) Albumin 3.0 g/dL (3.4-5.0) Albumin/Globulin Ratio 0.7 (1.0-1.7) O2 Saturation 98 % (92-99) Arterial Blood pH 7.39 (7.35-7.45) Arterial Blood pCO2 at Patient Temp 64 mmHg (35-46) Arterial Blood pO2 at Patient Temp 116 mmHg (65-108) Arterial Blood HCO3 38 mmol/L (21-28) Arterial Blood Base Excess 11 mmol/L (-3-3) Oxyhemoglobin 97.1 % Methemoglobin 0.5 % (0.0-1.9) Carbon Monoxide, Quantitative 0.3 % (0.0-1.9) FiO2 2.5l n.c. SARS-CoV-2 RNA (JIMI) Negative (Negative) SARS-CoV-2 Antigen (Rapid) Negative (NEGATIVE) Urine Collection Type Unknown Urine Color Yellow Urine Clarity Clear Urine pH 7.5 (<5.0-8.0) Urine Specific [place] 1.015 (1.000-1.030) Urine Protein Negative mg/dL (NEG-TRACE) Urine Glucose (UA) 100 mg/dL (NEG) Urine Ketones (Stick) Negative mg/dL (NEG) Urine Blood Negative (NEG) Urine Nitrite Negative (NEG) Urine Bilirubin Negative (NEG) Urine Urobilinogen Dipstick 0.2 mg/dL (0.2 mg/dL) Urine Leukocyte Esterase Moderate (NEG) Urine RBC 0 /HPF (0-2) Urine WBC >40 /HPF (0-4) Urine Squamous Epithelial Cells Few /LPF Urine Bacteria Moderate /HPF (0-FEW) Urine Mucus Slight /LPF Test 11/21/20 06:50 11/22/20 06:25 White Blood Count 3.4 x10^3/uL (4.0-11.0) 9.0 x10^3/uL (4.0-11.0) Red Blood Count 3.76 x10^6/uL (3.50-5.40) 3.55 x10^6/uL (3.50-5.40) Hemoglobin 12.7 g/dL (12.0-15.5) 11.9 g/dL (12.0-15.5) Hematocrit 37.5 % (36.0-47.0) 34.9 % (36.0-47.0) Mean Corpuscular Volume 100 fL (79-100) 99 fL (79-100) Mean Corpuscular Hemoglobin 34 pg (25-35) 34 pg (25-35) Mean Corpuscular Hemoglobin Concent 34 g/dL (31-37) 34 g/dL (31-37) Red Cell Distribution Width 11.4 % (11.5-14.5) 11.3 % (11.5-14.5) Platelet Count 237 x10^3/uL (140-400) 247 x10^3/uL (140-400) Neutrophils (%) (Auto) 84 % (31-73) 90 % (31-73) Lymphocytes (%) (Auto) 14 % (24-48) 7 % (24-48) Monocytes (%) (Auto) 2 % (0-9) 3 % (0-9) Eosinophils (%) (Auto) 0 % (0-3) 0 % (0-3) Basophils (%) (Auto) 0 % (0-3) 0 % (0-3) Neutrophils # (Auto) 2.8 x10^3/uL (1.8-7.7) 8.0 x10^3/uL (1.8-7.7) Lymphocytes # (Auto) 0.5 x10^3/uL (1.0-4.8) 0.6 x10^3/uL (1.0-4.8) Monocytes # (Auto) 0.1 x10^3/uL (0.0-1.1) 0.3 x10^3/uL (0.0-1.1) Eosinophils # (Auto) 0.0 x10^3/uL (0.0-0.7) 0.0 x10^3/uL (0.0-0.7) Basophils # (Auto) 0.0 x10^3/uL (0.0-0.2) 0.0 x10^3/uL (0.0-0.2) Sodium Level 133 mmol/L (136-145) 134 mmol/L (136-145) Potassium Level 4.6 mmol/L (3.5-5.1) 4.3 mmol/L (3.5-5.1) Chloride Level 93 mmol/L (98-107) 95 mmol/L (98-107) Carbon Dioxide Level 37 mmol/L (21-32) 36 mmol/L (21-32) Anion Gap 3 (6-14) 3 (6-14) Blood Urea Nitrogen 8 mg/dL (7-20) 9 mg/dL (7-20) Creatinine 0.5 mg/dL (0.6-1.0) 0.5 mg/dL (0.6-1.0) Estimated GFR (Cockcroft-Gault) 121.3 121.3 Glucose Level 140 mg/dL (70-99) 126 mg/dL (70-99) Calcium Level 9.7 mg/dL (8.5-10.1) 9.1 mg/dL (8.5-10.1) BUN/Creatinine Ratio 18 (6-20) Total Bilirubin 0.2 mg/dL (0.2-1.0) Aspartate Amino Transf (AST/SGOT) 20 U/L (15-37) Alanine Aminotransferase (ALT/SGPT) 20 U/L (14-59) Alkaline Phosphatase 90 U/L (46-116) Total Protein 6.7 g/dL (6.4-8.2) Albumin 2.6 g/dL (3.4-5.0) Albumin/Globulin Ratio 0.6 (1.0-1.7) Laboratory Tests Test 11/22/20 06:25 White Blood Count 9.0 x10^3/uL (4.0-11.0) Red Blood Count 3.55 x10^6/uL (3.50-5.40) Hemoglobin 11.9 g/dL (12.0-15.5) Hematocrit 34.9 % (36.0-47.0) Mean Corpuscular Volume 99 fL (79-100) Mean Corpuscular Hemoglobin 34 pg (25-35) Mean Corpuscular Hemoglobin Concent 34 g/dL (31-37) Red Cell Distribution Width 11.3 % (11.5-14.5) Platelet Count 247 x10^3/uL (140-400) Neutrophils (%) (Auto) 90 % (31-73) Lymphocytes (%) (Auto) 7 % (24-48) Monocytes (%) (Auto) 3 % (0-9) Eosinophils (%) (Auto) 0 % (0-3) Basophils (%) (Auto) 0 % (0-3) Neutrophils # (Auto) 8.0 x10^3/uL (1.8-7.7) Lymphocytes # (Auto) 0.6 x10^3/uL (1.0-4.8) Monocytes # (Auto) 0.3 x10^3/uL (0.0-1.1) Eosinophils # (Auto) 0.0 x10^3/uL (0.0-0.7) Basophils # (Auto) 0.0 x10^3/uL (0.0-0.2) Sodium Level 134 mmol/L (136-145) Potassium Level 4.3 mmol/L (3.5-5.1) Chloride Level 95 mmol/L (98-107) Carbon Dioxide Level 36 mmol/L (21-32) Anion Gap 3 (6-14) Blood Urea Nitrogen 9 mg/dL (7-20) Creatinine 0.5 mg/dL (0.6-1.0) Estimated GFR (Cockcroft-Gault) 121.3 BUN/Creatinine Ratio 18 (6-20) Glucose Level 126 mg/dL (70-99) Calcium Level 9.1 mg/dL (8.5-10.1) Total Bilirubin 0.2 mg/dL (0.2-1.0) Aspartate Amino Transf (AST/SGOT) 20 U/L (15-37) Alanine Aminotransferase (ALT/SGPT) 20 U/L (14-59) Alkaline Phosphatase 90 U/L (46-116) Total Protein 6.7 g/dL (6.4-8.2) Albumin 2.6 g/dL (3.4-5.0) Albumin/Globulin Ratio 0.6 (1.0-1.7) Medications Active Scripts Medications Dose Route/Sig Max Daily Dose Days Date Category Calcium Carbonate 500 Mg Tablet 1 Tab PO DAILY 30 11/26/19 Reported Ventolin Hfa Inhaler (Albuterol Sulfate) 18 Gm Hfa.aer.ad 2 Puff INH Q4HRS 11/26/19 Reported Simvastatin 20 Mg Tablet 1 Tab PO QHS 11/26/19 Reported Trazodone Hcl 50 Mg Tablet 50 Mg PO HS 06/14/17 Reported Symbicort 160-4.5 Mcg Inhaler (Budesonide/Formoterol Fumarate) 10.2 Gm Hfa.aer.ad 1 Puff IH BID 06/14/17 Reported Impression . 1. Acute on chronic respiratory failure secondary to acute exacerbation of chronic obstructive pulmonary disease and acute bronchitis question ella congestive heart failure. 2. Acute exacerbation of chronic obstructive pulmonary disease. 3. Acute bronchitis. 4. Elevated BNP question ella congestive heart failure. 5. Ex-smoker. 6. Breast cancer, status post mastectomy. Plan . PLAN AND RECOMMENDATIONS: 1. Titrate FiO2 to keep O2 saturation 92%. 2. Bronchodilator. 3. cont Solu-Medrol to 80 mg every 8 hrs. 4. Lovenox for DVT prophylaxis. 5. Protonix for stress ulcer prophylaxis. 6. Continue doxycycline. 7. The findings and recommendations were discussed with the patient. She understood and agreed to proceed with the plan. I have answered all of her questions. ANTHONY WALKER MD Nov 22, 2020 10:10
[2020-11-22 11:00] VITALS: BP 146/74
[2020-11-22 15:00] VITALS: BP 146/74
--- NOTE | 2020-11-22 15:34 | PDOC ---
GENERAL General: Patient examined chart reviewed no events overnight. She feels that she is clearing her mucus but is having a hard time with the nebulized albuterol and steroids causing her to be awake all night. She is asking to switch her guaifenesin syrup to oral Mucinex which is what she takes at home. I have backed down on her steroid dose to twice daily. She is looking forward to meeting with the pulmonary team tomorrow and is planning on following with them regularly as an outpatient. All other systems reviewed and negative. Problems: (1) COPD exacerbation VITAL SIGNS Vital Signs/I&O: Vital Signs Date Time Temp Pulse Resp B/P (MAP) Pulse Ox O2 Delivery O2 Flow Rate FiO2 11/22/20 11:00 98.2 94 16 146/74 (98) 95 Nasal Cannula 98.2 11/22/20 08:00 2.0 I & O 11/21/20 11/21/20 11/22/20 15:00 23:00 07:00 Intake Total 100 ml 200 ml 100 ml Output Total 200 ml Balance 100 ml 200 ml -100 ml In general the patient is pleasant alert and oriented x3 no acute distress. Coughing vigorously throughout the visit HEENT exam is unremarkable for acute abnormality Chest bilateral equal air entry though diminished throughout coughing throughout the exam. Wheezing at the bilateral bases Heart S1-S2 normal regular rate and rhythm no murmurs or gallops are noted Abdomen soft nontender nondistended no masses organomegaly noted Extremity exam is unremarkable for acute abnormality ALLERGIES Allergies: Allergies Coded Allergies Type Severity Reaction Last Updated Verified No Known Drug Allergies 11/26/19 No MEDS Medications: Current Medications Medications (Trade) Dose Ordered Sig/Rachana Start Time Stop Time Status Last Admin Dose Admin Acetaminophen (Tylenol) 650 mg PRN Q4HRS PRN 11/20/20 17:00 Al Hydroxide/Mg Hydroxide (Mylanta Plus Xs) 30 ml PRN DAILY PRN 11/20/20 17:00 Albuterol Sulfate (Ventolin Neb Soln) 2.5 mg PRN Q4HRS PRN 11/21/20 00:30 Albuterol/ Ipratropium (Duoneb) 3 ml Q4HRS 11/20/20 20:00 11/21/20 00:10 DC Budesonide (Pulmicort) 0.5 mg PRN BID PRN 11/21/20 18:30 11/21/20 20:48 Calcium Carbonate/ Glycine (Oscal) 500 mg DAILY 11/21/20 09:00 11/22/20 08:14 Docusate Sodium (Colace) 100 mg PRN BID PRN 11/20/20 17:00 Doxycycline Hyclate 100 mg/ Dextrose 100 ml @ 50 mls/hr Q12HR 11/20/20 18:00 11/22/20 08:17 Enoxaparin Sodium (Lovenox 40mg Syringe) 40 mg Q24H 11/20/20 21:00 11/21/20 21:13 Guaifenesin (Robitussin) 200 mg PRN Q4HRS PRN 11/20/20 17:00 Influenza Virus Vaccine Quadrival (Flulaval Quad [id number] Syringe) 0.5 ml ONCE ONCE 11/21/20 01:00 11/21/20 01:01 DC 11/21/20 12:11 Lactobacillus Rhamnosus (Culturelle) 1 cap BID 11/21/20 21:00 11/22/20 08:14 Lisinopril (Prinivil) 20 mg DAILY 11/21/20 09:00 11/20/20 20:29 DC Methylprednisolone Sodium Succinate (SOLU-Medrol 125MG VIAL) 80 mg Q8HRS 11/21/20 14:00 11/22/20 05:54 Non-Formulary Medication (NON FORMULARY ITEM (Symbicort 160 mcg/4.5 mcg)) 1 ea BID 11/20/20 21:00 11/22/20 08:25 Ondansetron HCl (Zofran) 4 mg PRN Q4HRS PRN 11/20/20 17:00 Pantoprazole Sodium (Protonix) 40 mg DAILYAC 11/20/20 17:30 11/22/20 08:14 Simvastatin (Zocor) 20 mg QHS 11/20/20 21:00 11/21/20 21:12 Sodium Chloride (Normal Saline Flush) 3 ml QSHIFT PRN 11/20/20 17:00 Trazodone HCl (Desyrel) 50 mg HS 11/20/20 21:00 UNV Current Medications Medications (Trade) Dose Ordered Sig/Rachana Route PRN Reason Start Time Stop Time Status Last Admin Dose Admin Lactobacillus Rhamnosus (Culturelle) 1 cap BID PO 11/21/20 21:00 11/22/20 08:14 Budesonide (Pulmicort) 0.5 mg PRN BID PRN NEB SHORTNESS OF BREATH 11/21/20 18:30 11/21/20 20:48 LAB Lab: Laboratory Tests Test 11/22/20 06:25 White Blood Count 9.0 x10^3/uL (4.0-11.0) Red Blood Count 3.55 x10^6/uL (3.50-5.40) Hemoglobin 11.9 g/dL (12.0-15.5) L Hematocrit 34.9 % (36.0-47.0) L Mean Corpuscular Volume 99 fL (79-100) Mean Corpuscular Hemoglobin 34 pg (25-35) Mean Corpuscular Hemoglobin Concent 34 g/dL (31-37) Red Cell Distribution Width 11.3 % (11.5-14.5) L Platelet Count 247 x10^3/uL (140-400) Neutrophils (%) (Auto) 90 % (31-73) H Lymphocytes (%) (Auto) 7 % (24-48) L Monocytes (%) (Auto) 3 % (0-9) Eosinophils (%) (Auto) 0 % (0-3) Basophils (%) (Auto) 0 % (0-3) Neutrophils # (Auto) 8.0 x10^3/uL (1.8-7.7) H Lymphocytes # (Auto) 0.6 x10^3/uL (1.0-4.8) L Monocytes # (Auto) 0.3 x10^3/uL (0.0-1.1) Eosinophils # (Auto) 0.0 x10^3/uL (0.0-0.7) Basophils # (Auto) 0.0 x10^3/uL (0.0-0.2) Sodium Level 134 mmol/L (136-145) L Potassium Level 4.3 mmol/L (3.5-5.1) Chloride Level 95 mmol/L (98-107) L Carbon Dioxide Level 36 mmol/L (21-32) H Anion Gap 3 (6-14) L Blood Urea Nitrogen 9 mg/dL (7-20) Creatinine 0.5 mg/dL (0.6-1.0) L Estimated GFR (Cockcroft-Gault) 121.3 BUN/Creatinine Ratio 18 (6-20) Glucose Level 126 mg/dL (70-99) H Calcium Level 9.1 mg/dL (8.5-10.1) Total Bilirubin 0.2 mg/dL (0.2-1.0) Aspartate Amino Transferase (AST) 20 U/L (15-37) Alanine Aminotransferase (ALT) 20 U/L (14-59) Alkaline Phosphatase 90 U/L (46-116) Total Protein 6.7 g/dL (6.4-8.2) Albumin 2.6 g/dL (3.4-5.0) L Albumin/Globulin Ratio 0.6 (1.0-1.7) L Laboratory Tests 11/22/20 06:25 Laboratory Tests 11/22/20 06:25 ASSESSMENT & PLAN A&P Plan as noted above This note was created using [employer] and may have omissions and/or errors due to the nature of real-time voice printer's assistant. Justifications for Admission Other Justification SEVERE HYPERCAPNIC RESP FAILURE FREEMAN MA MD Nov 22, 2020 15:34
[2020-11-22] MEDS: BENZONATATE 100 MG CAPSULE. PO SCH ×2 (15:41→20:19)
[2020-11-22] MEDS: ALBUTEROL SULFATE 2.5 MG/3 ML NEBU. NEB PRN (16:44)
[2020-11-22 19:00] VITALS: BP 136/76
[2020-11-22] MEDS: traZODone 50 MG TABLET. PO SCH (20:18)
[2020-11-22] MEDS: SIMVASTATIN 20 MG TABLET PO SCH (20:19)
[2020-11-22] MEDS: ENOXAPARIN 40 MG/0.4 ML SYRINGE. SQ SCH (20:19)
--- NOTE | 2020-11-22 20:24 | NUR ---
patient reports she did use her simbicort at 6pm
[2020-11-22 23:00] VITALS: BP 147/82
[2020-11-23 03:00] VITALS: BP 126/72
[2020-11-23 07:00] VITALS: BP 128/73
[2020-11-23 07:32] LABS: BASO % 0 % (0-3); EOS % 0 % (0-3); HEMATOCRIT 34.2 % (36.0-47.0); HEMOGLOBIN 11.7 g/dL (12.0-15.5); LYMPH # 1.1 x10^3/uL (1.0-4.8); LYMPH % 12 % (24-48); MEAN CORPUSCULAR HEMOGLOBIN 34 pg (25-35); MEAN CORPUSCULAR HGB CONC 34 g/dL (31-37); MEAN CORPUSCULAR VOLUME 98 fL (79-100); MONO # 0.9 x10^3/uL (0.0-1.1); MONO % 10 % (0-9); NEUT # 6.9 x10^3/uL (1.8-7.7); NEUT % 78 % (31-73); PLATELET COUNT 253 x10^3/uL (140-400); RED BLOOD COUNT 3.48 x10^6/uL (3.50-5.40); RED CELL DISTRIBUTION WIDTH 11.8 % (11.5-14.5); WHITE BLOOD COUNT 8.8 x10^3/uL (4.0-11.0)
--- NOTE | 2020-11-23 07:40 | PDOC ---
PULMONARY PROGRESS NOTES DATE: 11/23/20 TIME: 07:39 Subjective Patient not worse, normally follows Dr. Anglin in the office Chronically on 2 L of oxygen supplement Vitals Vital Signs Date Time Temp Pulse Resp B/P (MAP) Pulse Ox O2 Delivery O2 Flow Rate FiO2 11/23/20 03:00 98.9 78 16 126/72 (90) 99 98.9 11/22/20 20:00 Nasal Cannula 2.0 ROS: No Nausea, No Chest Pain, No Abdominal Pain, No Increase Cough General: Alert, No acute distress HEENT: Other (nc at ) Lungs: Other (b diminished bs) Cardiovascular: S1, S2 Abdomen: Soft Neuro Exam: Alert Extremities: No Edema Skin: Warm Labs Laboratory Tests Test 11/22/20 06:25 11/23/20 05:55 White Blood Count 9.0 x10^3/uL (4.0-11.0) 8.8 x10^3/uL (4.0-11.0) Red Blood Count 3.55 x10^6/uL (3.50-5.40) 3.48 x10^6/uL (3.50-5.40) Hemoglobin 11.9 g/dL (12.0-15.5) 11.7 g/dL (12.0-15.5) Hematocrit 34.9 % (36.0-47.0) 34.2 % (36.0-47.0) Mean Corpuscular Volume 99 fL (79-100) 98 fL (79-100) Mean Corpuscular Hemoglobin 34 pg (25-35) 34 pg (25-35) Mean Corpuscular Hemoglobin Concent 34 g/dL (31-37) 34 g/dL (31-37) Red Cell Distribution Width 11.3 % (11.5-14.5) 11.8 % (11.5-14.5) Platelet Count 247 x10^3/uL (140-400) 253 x10^3/uL (140-400) Neutrophils (%) (Auto) 90 % (31-73) 78 % (31-73) Lymphocytes (%) (Auto) 7 % (24-48) 12 % (24-48) Monocytes (%) (Auto) 3 % (0-9) 10 % (0-9) Eosinophils (%) (Auto) 0 % (0-3) 0 % (0-3) Basophils (%) (Auto) 0 % (0-3) 0 % (0-3) Neutrophils # (Auto) 8.0 x10^3/uL (1.8-7.7) 6.9 x10^3/uL (1.8-7.7) Lymphocytes # (Auto) 0.6 x10^3/uL (1.0-4.8) 1.1 x10^3/uL (1.0-4.8) Monocytes # (Auto) 0.3 x10^3/uL (0.0-1.1) 0.9 x10^3/uL (0.0-1.1) Eosinophils # (Auto) 0.0 x10^3/uL (0.0-0.7) 0.0 x10^3/uL (0.0-0.7) Basophils # (Auto) 0.0 x10^3/uL (0.0-0.2) 0.0 x10^3/uL (0.0-0.2) Sodium Level 134 mmol/L (136-145) Potassium Level 4.3 mmol/L (3.5-5.1) Chloride Level 95 mmol/L (98-107) Carbon Dioxide Level 36 mmol/L (21-32) Anion Gap 3 (6-14) Blood Urea Nitrogen 9 mg/dL (7-20) Creatinine 0.5 mg/dL (0.6-1.0) Estimated GFR (Cockcroft-Gault) 121.3 BUN/Creatinine Ratio 18 (6-20) Glucose Level 126 mg/dL (70-99) Calcium Level 9.1 mg/dL (8.5-10.1) Total Bilirubin 0.2 mg/dL (0.2-1.0) Aspartate Amino Transf (AST/SGOT) 20 U/L (15-37) Alanine Aminotransferase (ALT/SGPT) 20 U/L (14-59) Alkaline Phosphatase 90 U/L (46-116) Total Protein 6.7 g/dL (6.4-8.2) Albumin 2.6 g/dL (3.4-5.0) Albumin/Globulin Ratio 0.6 (1.0-1.7) Laboratory Tests Test 9/20/21 05:55 White Blood Count 8.8 x10^3/uL (4.0-11.0) Red Blood Count 3.48 x10^6/uL (3.50-5.40) Hemoglobin 11.7 g/dL (12.0-15.5) Hematocrit 34.2 % (36.0-47.0) Mean Corpuscular Volume 98 fL (79-100) Mean Corpuscular Hemoglobin 34 pg (25-35) Mean Corpuscular Hemoglobin Concent 34 g/dL (31-37) Red Cell Distribution Width 11.8 % (11.5-14.5) Platelet Count 253 x10^3/uL (140-400) Neutrophils (%) (Auto) 78 % (31-73) Lymphocytes (%) (Auto) 12 % (24-48) Monocytes (%) (Auto) 10 % (0-9) Eosinophils (%) (Auto) 0 % (0-3) Basophils (%) (Auto) 0 % (0-3) Neutrophils # (Auto) 6.9 x10^3/uL (1.8-7.7) Lymphocytes # (Auto) 1.1 x10^3/uL (1.0-4.8) Monocytes # (Auto) 0.9 x10^3/uL (0.0-1.1) Eosinophils # (Auto) 0.0 x10^3/uL (0.0-0.7) Basophils # (Auto) 0.0 x10^3/uL (0.0-0.2) Medications Active Scripts Medications Dose Route/Sig Max Daily Dose Days Date Category Calcium Carbonate 500 Mg Tablet 1 Tab PO DAILY 30 11/26/19 Reported Ventolin Hfa Inhaler (Albuterol Sulfate) 18 Gm Hfa.aer.ad 2 Puff INH Q4HRS 11/26/19 Reported Simvastatin 20 Mg Tablet 1 Tab PO QHS 11/26/19 Reported Trazodone Hcl 50 Mg Tablet 50 Mg PO HS 06/14/17 Reported Symbicort 160-4.5 Mcg Inhaler (Budesonide/Formoterol Fumarate) 10.2 Gm Hfa.aer.ad 1 Puff IH BID 06/14/17 Reported Impression . 1. Acute on chronic respiratory failure secondary to acute exacerbation of chronic obstructive pulmonary disease and acute bronchitis question ella congestive heart failure. 2. Acute exacerbation of chronic obstructive pulmonary disease. 3. Acute bronchitis. 4. Elevated BNP question ella congestive heart failure. 5. Ex-smoker. 6. Breast cancer, status post mastectomy. Plan . Updated 11/23 Continue oxygen supplementation Steroids Diurese as needed Monitor chest x Discontinue smoking 10 years ago PLAN AND RECOMMENDATIONS: 1. Titrate FiO2 to keep O2 saturation 92%. 2. Bronchodilator. 3. cont Solu-Medrol to 80 mg every 8 hrs. 4. Lovenox for DVT prophylaxis. 5. Protonix for stress ulcer prophylaxis. 6. Continue doxycycline. 7. The findings and recommendations were discussed with the patient. She understood and agreed to proceed with the plan. I have answered all of her questions. MERLIN LOVE MD Nov 23, 2020 07:39
[2020-11-23 07:42] LABS: ALBUMIN 2.5 g/dL (3.4-5.0); ALBUMIN/GLOBULIN RATIO 0.7 (1.0-1.7); CALCIUM 8.9 mg/dL (8.5-10.1); CREATININE 0.5 mg/dL (0.6-1.0); GFR 121.3; TOTAL BILIRUBIN 0.2 mg/dL (0.2-1.0); TOTAL PROTEIN 6.1 g/dL (6.4-8.2)
[2020-11-23] MEDS: LACTOBACILLUS RHAMNOSUS GG 1 CAPSULE. PO SCH ×2 (08:07→21:05)
[2020-11-23] MEDS: CALCIUM CARBONATE 500 MG TABLET PO SCH (08:08)
[2020-11-23] MEDS: PANTOPRAZOLE 40 MG TABLET.DR. PO SCH (08:08)
[2020-11-23] MEDS: BENZONATATE 100 MG CAPSULE. PO SCH ×3 (08:08→21:05)
[2020-11-23] MEDS: DOXYCYCLINE HYCLATE 100 MG in IV DEXTROSE 5% 100ML 100 ML IV SCH (08:22)
[2020-11-23] MEDS: SYMBICORT INH SCH ×2 (09:00→21:00)
[2020-11-23 11:00] VITALS: BP 148/82
--- NOTE | 2020-11-23 11:27 | NUR ---
SW following. Discussed with RN, pt from home - daughter lives with her, 2L (uses at home), cardiac diet. COVID-19 negative. Pulmonology following. Possible discharge home today. SW will continue to follow.
--- NOTE | 2020-11-23 14:47 | PDOC ---
[facility] PROGRESS NOTE Date of Service DOS: DATE: 11/23/20 TIME: 14:35 Chief Complaint Chief Complaint Assessment/Plan: Acute on chronic respiratory failure Acute COPD exacerbation Acute bronchitis Severe protein malnutrition History of tobacco misuse History of breast cancer status postmastectomy Continue O2 supplementation Continue with steroids PT OT 6-minute walk test before discharge Pulmonology consult appreciated rectal recommendations History of Present Illness History of Present Illness No acute74 year old female who presented with worsening shortness of breath for the last 2 weeks. today very short of breath. off her oxygen, her O2 sat was only 76% IN the ED room patient's respirations were 32 and her oxygen saturation was 90% on the 2.5 L. she is increasingly SHORT OF AIR, HAS A POOR APPETITE , and is losing weight She has a history of COPD, high cholesterol, appendectomy. // had both of her Covid vaccines. ABG C/W HYPERCAPNEA denies chest pain, fever, headache, dizziness, syncope, focal weakness, abdominal pain, nausea, vomiting, diarrhea, numbness tingling was given 4 breathing treatments in ER ,did not have much improvement. WILL ADMIT, CONSULT PULM, KEEP SPO2 < 92% AVOID HYPERCAPNEA, trial of iv steroids 11/21/20 Patient examined chart reviewed today is hospital day 2 for this patient admitted with COPD exacerbation she tells me that she is very frightened about the thought of discharging before she has a better handle on her respiratory symptoms. She has been following with primary care only for her COPD and is wanting to establish with pulmonary. She tells me she has been on 2 L of oxygen continuously since May of this year and she just does not feel like she has been able to do what she wants to do without getting extremely short of breath. Prior to May she was able to stay very active. She has never had Covid she and her daughter are fully vaccinated. She lives with her daughter who works here at the hospital. She has a follow-up with her oncologist next week she is 1 year out from breast cancer treatments. All other systems were reviewed and negative. Time spent today is 30 minutes with greater than 50% in counseling and coordination of care most of which in discussion with patient. 11/22/20 Patient examined chart reviewed no events overnight. She feels that she is clearing her mucus but is having a hard time with the nebulized albuterol and steroids causing her to be awake all night. She is asking to switch her guaifenesin syrup to oral Mucinex which is what she takes at home. I have backed down on her steroid dose to twice daily. She is looking forward to meeting with the pulmonary team tomorrow and is planning on following with them regularly as an outpatient. All other systems reviewed and negative 11/23/2020 Meds overnight. Patient seen examined bedside. Patient doing well with PT OT and there is some improvement. Saturating 99% on 2 L nasal cannula. Patient is on 2 L at home at her baseline. However she does desaturate to 88% during ambulation on 2 L of oxygen. Patient will need a 6-minute walk test before discharge. Patient's chart, labs, images were reviewed and discussed with RN a candidate this is Forrest returning. Patient's chart, labs, images were reviewed and discussed with RN Vitals/I&O Vitals/I&O: Vital Signs Date Time Temp Pulse Resp B/P (MAP) Pulse Ox O2 Delivery O2 Flow Rate FiO2 11/23/20 11:00 98.3 86 18 148/82 (104) 99 98.3 11/23/20 08:00 Nasal Cannula 2.0 I & O 11/22/20 11/22/20 11/23/20 15:00 23:00 07:00 Intake Total 240 ml Output Total 450 ml Balance -210 ml Physical Exam General: Alert, Oriented X3, Cooperative Lungs: Other (Diminished breath sounds bilaterally in all lung vivas) Abdomen: Normal bowel sounds, Soft, Other (thin) Extremities: No cyanosis Labs Labs: Laboratory Tests Test 11/23/20 05:55 White Blood Count 8.8 x10^3/uL (4.0-11.0) Red Blood Count 3.48 x10^6/uL (3.50-5.40) Hemoglobin 11.7 g/dL (12.0-15.5) Hematocrit 34.2 % (36.0-47.0) Mean Corpuscular Volume 98 fL (79-100) Mean Corpuscular Hemoglobin 34 pg (25-35) Mean Corpuscular Hemoglobin Concent 34 g/dL (31-37) Red Cell Distribution Width 11.8 % (11.5-14.5) Platelet Count 253 x10^3/uL (140-400) Neutrophils (%) (Auto) 78 % (31-73) Lymphocytes (%) (Auto) 12 % (24-48) Monocytes (%) (Auto) 10 % (0-9) Eosinophils (%) (Auto) 0 % (0-3) Basophils (%) (Auto) 0 % (0-3) Neutrophils # (Auto) 6.9 x10^3/uL (1.8-7.7) Lymphocytes # (Auto) 1.1 x10^3/uL (1.0-4.8) Monocytes # (Auto) 0.9 x10^3/uL (0.0-1.1) Eosinophils # (Auto) 0.0 x10^3/uL (0.0-0.7) Basophils # (Auto) 0.0 x10^3/uL (0.0-0.2) Sodium Level 134 mmol/L (136-145) Potassium Level 4.0 mmol/L (3.5-5.1) Chloride Level 96 mmol/L (98-107) Carbon Dioxide Level 38 mmol/L (21-32) Anion Gap 0 (6-14) Blood Urea Nitrogen 12 mg/dL (7-20) Creatinine 0.5 mg/dL (0.6-1.0) Estimated GFR (Cockcroft-Gault) 121.3 BUN/Creatinine Ratio 24 (6-20) Glucose Level 86 mg/dL (70-99) Calcium Level 8.9 mg/dL (8.5-10.1) Total Bilirubin 0.2 mg/dL (0.2-1.0) Aspartate Amino Transf (AST/SGOT) 22 U/L (15-37) Alanine Aminotransferase (ALT/SGPT) 16 U/L (14-59) Alkaline Phosphatase 78 U/L (46-116) Total Protein 6.1 g/dL (6.4-8.2) Albumin 2.5 g/dL (3.4-5.0) Albumin/Globulin Ratio 0.7 (1.0-1.7) Assessment and Plan Assessmemt and Plan Problems Medical Problems: (1) COPD exacerbation Status: Acute Comment Review of Relevant I have reviewed the following items ella (where applicable) has been applied. Medications: Current Medications Medications (Trade) Dose Ordered Sig/Rachana Route PRN Reason Start Time Stop Time Status Last Admin Dose Admin Guaifenesin (Mucinex) 600 mg BID PO 11/22/20 21:00 11/23/20 08:08 Benzonatate (Tessalon Perle) 100 mg [id number] PO 11/22/20 15:30 11/23/20 08:08 Justifications for Admission Other Justification SEVERE HYPERCAPNIC RESP FAILURE ABEL URIARTE MD Nov 23, 2020 14:47
[2020-11-23 15:00] VITALS: BP 147/85
[2020-11-23] MEDS: ALBUTEROL SULFATE 2.5 MG/3 ML NEBU. NEB PRN (17:41)
[2020-11-23 19:00] VITALS: BP 126/74
[2020-11-23] MEDS: DOXYCYCLINE HYCLATE 100 MG TABLET PO SCH (21:05)
[2020-11-23] MEDS: traZODone 50 MG TABLET. PO SCH (21:05)
[2020-11-23] MEDS: SIMVASTATIN 20 MG TABLET PO SCH (21:05)
[2020-11-23] MEDS: methylPREDNISolone SOD SUCC PF 125 MG/2 ML VIAL. IV SCH (21:05)
[2020-11-23] MEDS: ENOXAPARIN 40 MG/0.4 ML SYRINGE. SQ SCH (21:05)
[2020-11-23 23:00] VITALS: BP 123/77
[2020-11-24 03:00] VITALS: BP 130/71
[2020-11-24 07:00] VITALS: BP 119/75
[2020-11-24] MEDS: BENZONATATE 100 MG CAPSULE. PO SCH (08:19)
[2020-11-24] MEDS: LACTOBACILLUS RHAMNOSUS GG 1 CAPSULE. PO SCH (08:19)
[2020-11-24] MEDS: DOXYCYCLINE HYCLATE 100 MG TABLET PO SCH (08:19)
[2020-11-24] MEDS: CALCIUM CARBONATE 500 MG TABLET PO SCH (08:19)
[2020-11-24] MEDS: PANTOPRAZOLE 40 MG TABLET.DR. PO SCH (08:19)
[2020-11-24] MEDS: methylPREDNISolone SOD SUCC PF 125 MG/2 ML VIAL. IV SCH (08:20)
[2020-11-24] MEDS: SYMBICORT INH SCH (09:00)
--- NOTE | 2020-11-24 09:00 | PDOC ---
PULMONARY PROGRESS NOTES DATE: 11/24/20 TIME: 09:00 Subjective Patient not worse, normally follows Dr. Anglin in the office Chronically on 2 L of oxygen supplement Vitals Vital Signs Date Time Temp Pulse Resp B/P (MAP) Pulse Ox O2 Delivery O2 Flow Rate FiO2 11/24/20 07:00 98.6 94 20 119/75 (90) 94 Nasal Cannula 2.0 98.6 ROS: No Nausea, No Chest Pain, No Abdominal Pain, No Increase Cough General: Alert, No acute distress HEENT: Other (nc at ) Lungs: Other (Diminished breath sounds bilaterally in all lung vivas) Cardiovascular: S1, S2 Abdomen: Soft Neuro Exam: Alert Extremities: No Edema Skin: Warm Labs Laboratory Tests Test 11/23/20 05:55 White Blood Count 8.8 x10^3/uL (4.0-11.0) Red Blood Count 3.48 x10^6/uL (3.50-5.40) Hemoglobin 11.7 g/dL (12.0-15.5) Hematocrit 34.2 % (36.0-47.0) Mean Corpuscular Volume 98 fL (79-100) Mean Corpuscular Hemoglobin 34 pg (25-35) Mean Corpuscular Hemoglobin Concent 34 g/dL (31-37) Red Cell Distribution Width 11.8 % (11.5-14.5) Platelet Count 253 x10^3/uL (140-400) Neutrophils (%) (Auto) 78 % (31-73) Lymphocytes (%) (Auto) 12 % (24-48) Monocytes (%) (Auto) 10 % (0-9) Eosinophils (%) (Auto) 0 % (0-3) Basophils (%) (Auto) 0 % (0-3) Neutrophils # (Auto) 6.9 x10^3/uL (1.8-7.7) Lymphocytes # (Auto) 1.1 x10^3/uL (1.0-4.8) Monocytes # (Auto) 0.9 x10^3/uL (0.0-1.1) Eosinophils # (Auto) 0.0 x10^3/uL (0.0-0.7) Basophils # (Auto) 0.0 x10^3/uL (0.0-0.2) Sodium Level 134 mmol/L (136-145) Potassium Level 4.0 mmol/L (3.5-5.1) Chloride Level 96 mmol/L (98-107) Carbon Dioxide Level 38 mmol/L (21-32) Anion Gap 0 (6-14) Blood Urea Nitrogen 12 mg/dL (7-20) Creatinine 0.5 mg/dL (0.6-1.0) Estimated GFR (Cockcroft-Gault) 121.3 BUN/Creatinine Ratio 24 (6-20) Glucose Level 86 mg/dL (70-99) Calcium Level 8.9 mg/dL (8.5-10.1) Total Bilirubin 0.2 mg/dL (0.2-1.0) Aspartate Amino Transf (AST/SGOT) 22 U/L (15-37) Alanine Aminotransferase (ALT/SGPT) 16 U/L (14-59) Alkaline Phosphatase 78 U/L (46-116) Total Protein 6.1 g/dL (6.4-8.2) Albumin 2.5 g/dL (3.4-5.0) Albumin/Globulin Ratio 0.7 (1.0-1.7) Medications Active Scripts Medications Dose Route/Sig Max Daily Dose Days Date Category Calcium Carbonate 500 Mg Tablet 1 Tab PO DAILY 30 11/26/19 Reported Ventolin Hfa Inhaler (Albuterol Sulfate) 18 Gm Hfa.aer.ad 2 Puff INH Q4HRS 11/26/19 Reported Simvastatin 20 Mg Tablet 1 Tab PO QHS 11/26/19 Reported Trazodone Hcl 50 Mg Tablet 50 Mg PO HS 06/14/17 Reported Symbicort 160-4.5 Mcg Inhaler (Budesonide/Formoterol Fumarate) 10.2 Gm Hfa.aer.ad 1 Puff IH BID 06/14/17 Reported Impression . 1. Acute on chronic respiratory failure secondary to acute exacerbation of chronic obstructive pulmonary disease and acute bronchitis question ella congestive heart failure. 2. Acute exacerbation of chronic obstructive pulmonary disease. 3. Acute bronchitis. 4. Elevated BNP question ella congestive heart failure. 5. Ex-smoker. 6. Breast cancer, status post mastectomy. Plan . Updated 11/23 Continue oxygen supplementation Steroids Diurese as needed Monitor chest x Discontinue smoking 10 years ago PLAN AND RECOMMENDATIONS: 1. Titrate FiO2 to keep O2 saturation 92%. 2. Bronchodilator. 3. cont Solu-Medrol to 80 mg every 8 hrs. 4. Lovenox for DVT prophylaxis. 5. Protonix for stress ulcer prophylaxis. 6. Continue doxycycline. 7. The findings and recommendations were discussed with the patient. She understood and agreed to proceed with the plan. I have answered all of her questions. MERLIN LOVE MD Nov 24, 2020 09:00
[2020-11-24 09:19] LABS: CALCIUM 9.2 mg/dL (8.5-10.1); CREATININE 0.6 mg/dL (0.6-1.0); GFR 98.3; PHOSPHORUS 4.1 mg/dL (2.6-4.7); POTASSIUM 5.1 mmol/L (3.5-5.1)
[2020-11-24] MEDS ORDERED: PRED20TA PO (09:53)
--- NOTE | 2020-11-24 09:55 | DISCH ---
DISCHARGE INSTRUCTIONS Condition on Discharge Condition on Discharge: Stable Activity After Discharge Activity Instructions for Disc: Resume previous activity, Activity as tolerated Bathing Instructions: Shower-keep dressing dry, No Tub Bath until see Lifting Instructions after Dis: No heavy lifting, Do not lift >10 pounds Exercise Instruction after Dis: Walk 10 min, 3 x per day Driving Instructions after Dis: No driving for 2 weeks Weight Bearing Status after Di: No restrictions Diet after Discharge Diet after Discharge: Cardiac, Vegetarian Diet Texture: Regular Liquid Texture: Thin Liquid Swallowing Supervision: None needed Wound Incision Care Wound/Incision Care: Keep wound/cast CDI Wound Care Equipment: Dressings Contacting the [facility] after DC Call your doctor for: Concerns you may have Follow-Up Follow up with: PCP within 2 weeks of discharge Follow Up With: Pulmonology as scheduled Treatment/Equipment after DC Adaptive Equipment Issued: None ABEL URIARTE MD Nov 24, 2020 09:55
--- NOTE | 2020-11-24 10:54 | NUR ---
Pt discharged to home with family. Was previously on oxygen prior to admission. No needs at this time.
[2020-11-24 11:00] VITALS: BP 153/93
--- NOTE | 2020-11-25 21:25 | PDOC3 ---
[facility]-Discharge Summary Date of Admission: Date of Admission: Nov 20, 2020 Date of Discharge: Date of Discharge: Nov 23, 2020 Discharge Diagnosis: Discharge Diagnosis: Acute on chronic respiratory failure Acute COPD exacerbation Acute bronchitis Severe protein malnutrition History of tobacco misuse History of breast cancer status postmastectomy Hospital Course: Hospital Course: 74 year old female who presented with worsening shortness of breath for the last 2 weeks. today very short of breath. off her oxygen, her O2 sat was only 76% IN the ED room patient's respirations were 32 and her oxygen saturation was 90% on the 2.5 L. she is increasingly SHORT OF AIR, HAS A POOR APPETITE , and is losing weight She has a history of COPD, high cholesterol, appendectomy. // had both of her Covid vaccines. ABG C/W HYPERCAPNEA denies chest pain, fever, headache, dizziness, syncope, focal weakness, abdominal pain, nausea, vomiting, diarrhea, numbness tingling was given 4 breathing treatments in ER ,did not have much improvement. WILL ADMIT, CONSULT PULM, KEEP SPO2 < 92% AVOID HYPERCAPNEA, trial of iv steroids 11/21/20 Patient examined chart reviewed today is hospital day 2 for this patient admitted with COPD exacerbation she tells me that she is very frightened about the thought of discharging before she has a better handle on her respiratory symptoms. She has been following with primary care only for her COPD and is wanting to establish with pulmonary. She tells me she has been on 2 L of oxygen continuously since May of this year and she just does not feel like she has been able to do what she wants to do without getting extremely short of breath. Prior to May she was able to stay very active. She has never had Covid she and her daughter are fully vaccinated. She lives with her daughter who works here at the hospital. She has a follow-up with her oncologist next week she is 1 year out from breast cancer treatments. All other systems were reviewed and negative. Time spent today is 30 minutes with greater than 50% in counseling and coordination of care most of which in discussion with patient. 11/22/20 Patient examined chart reviewed no events overnight. She feels that she is clearing her mucus but is having a hard time with the nebulized albuterol and steroids causing her to be awake all night. She is asking to switch her guaifenesin syrup to oral Mucinex which is what she takes at home. I have backed down on her steroid dose to twice daily. She is looking forward to meeting with the pulmonary team tomorrow and is planning on following with them regularly as an outpatient. All other systems reviewed and negative 11/23/2020 Meds overnight. Patient seen examined bedside. Patient doing well with PT OT and there is some improvement. Saturating 99% on 2 L nasal cannula. Patient is on 2 L at home at her baseline. However she does desaturate to 88% during ambulation on 2 L of oxygen. Patient will need a 6-minute walk test before discharge. Patient's chart, labs, images were reviewed and discussed with RN a candidate this is Forrest returning. Patient's chart, labs, images were reviewed and discussed with RN By day of discharge, pt was clinically stable and ready for discharge. Rest of hospital course was uneventful Disposition: Disposition/Orders: D/C to Home Activity: Activity: Resume previous activity Diet: Diet: Cardiac Medications: Home Meds Active Scripts Prednisone (PREDNISONE) 20 Mg Tablet, 1 TAB PO DAILY for COPD exacerbation for 5 Days, #5 TAB Prov:ABEL URIARTE MD 11/24/20 Reported Medications Calcium Carbonate (CALCIUM CARBONATE) 500 Mg Tablet, 1 TAB PO DAILY for supplem ent for 30 Days, #30 TAB 0 Refills 11/26/19 Albuterol Sulfate (VENTOLIN HFA INHALER) 18 Gm Hfa.aer.ad, 2 PUFF INH Q4HRS for rescue inhaler for COPD, INHALER 0 Refills 11/26/19 Simvastatin (SIMVASTATIN) 20 Mg Tablet, 1 TAB PO QHS for hyperlipidemia, #30 TAB 5 Refills 11/26/19 Trazodone Hcl (TRAZODONE HCL) 50 Mg Tablet, 50 MG PO HS, TAB 06/14/17 Budesonide/Formoterol Fumarate (SYMBICORT 160-4.5 MCG INHALER) 10.2 Gm Hfa.aer.ad, 1 PUFF IH BID, INHALER 06/14/17 Discontinued Reported Medications Lisinopril (LISINOPRIL) 20 Mg Tablet, 20 MG PO DAILY for FOR HYPERTENSION, #30 TAB 0 Refills 06/14/17 Scheduled Albuterol Sulfate (Ventolin Hfa Inhaler), 2 PUFF INH Q4HRS, (Reported) Budesonide/Formoterol Fumarate (Symbicort 160-4.5 Mcg Inhaler), 1 PUFF IH BID, (Reported) Calcium Carbonate (Calcium Carbonate), 1 TAB PO DAILY, (Reported) Prednisone (Prednisone), 1 TAB PO DAILY Simvastatin (Simvastatin), 1 TAB PO QHS, (Reported) Trazodone Hcl (Trazodone Hcl), 50 MG PO HS, (Reported) Discontinued Medications Lisinopril (Lisinopril), 20 MG PO DAILY, (Reported) Total Time: Total Time: Total time spent was 32 minutes in preparing scripts, discharge planning with SW and RN, and preparing this discharge summary. Patient seen and examined on day of discharge. Justicifation of Admission Dx: Justifications for Admission: Justification of Admission Dx: Yes ABEL URIARTE MD Nov 25, 2020 21:25
== END 2020-11-24 10:54 | disposition home or self-care (01) | DRG 189 ==
LOC: ER 13:12 → 5 SOUTH 14:34
PROVIDERS: ADMIT Family Medicine; ATTEND Family Medicine
DX: J96.22 Acute and chronic respiratory failure with hypercapnia (principal); E43 Unspecified severe protein-calorie malnutrition; J44.0 Chronic obstructive pulmonary disease with (acute) lower respiratory infection; J44.1 Chronic obstructive pulmonary disease with (acute) exacerbation; Z68.1 Body mass index [BMI] 19.9 or less, adult; J20.9 Acute bronchitis, unspecified; Z20.822 Contact with and (suspected) exposure to COVID-19; E78.00 Pure hypercholesterolemia, unspecified; Z82.49 Family history of ischemic heart disease and other diseases of the circulatory system; Z85.3 Personal history of malignant neoplasm of breast; Z87.891 Personal history of nicotine dependence; Z90.12 Acquired absence of left breast and nipple; Z90.49 Acquired absence of other specified parts of digestive tract; Z99.81 Dependence on supplemental oxygen
CPT/HCPCS: 36415; 36600; 71045; 80048; 80053; 81001; 82805; 83735; 83880; 84100; 84484; 85025; 87086; 87426; 90471; 90686; 93005; 94640; 94760; 96374; J1650; J2930; J3490; J7060; U0003; U0005; 97110-GP; 97116-GP; 97535-GO; 99285-25; G0378; J7613; J7626

== ENCOUNTER → 2021-03-25 | Outpatient (CLI) | payer MEDICARE ==
[~2021-03-25] MED LIST changes: +PRED20TA PO
[2021-03-25 11:56] LABS: BASO % 1 % (0-3); EOS % 1 % (0-3); HEMOGLOBIN 13.1 g/dL (12.0-15.5); LYMPH % 21 % (24-48); MEAN CORPUSCULAR HEMOGLOBIN 33 pg (25-35); MEAN CORPUSCULAR HGB CONC 34 g/dL (31-37); MEAN CORPUSCULAR VOLUME 98 fL (79-100); MONO # 0.4 x10^3/uL (0.0-1.1); MONO % 9 % (0-9); NEUT # 3.3 x10^3/uL (1.8-7.7); NEUT % 69 % (31-73); PLATELET COUNT 188 x10^3/uL (140-400); RED BLOOD COUNT 3.99 x10^6/uL (3.50-5.40); WHITE BLOOD COUNT 4.8 x10^3/uL (4.0-11.0)
[2021-03-25 12:08] LABS: CALCIUM 9.5 mg/dL (8.5-10.1); CREATININE 0.5 mg/dL (0.6-1.0); GFR 120.9; POTASSIUM 5.7 mmol/L (3.5-5.1)
[2021-03-25 12:14] LABS: ALBUMIN 3.6 g/dL (3.4-5.0); TOTAL BILIRUBIN 0.4 mg/dL (0.2-1.0); TOTAL PROTEIN 7.1 g/dL (6.4-8.2)
== END ==
LOC: ONCLAB 11:35
PROVIDERS: ATTEND Internal Medicine Hematology & Oncology
DX: C50.911 Malignant neoplasm of unspecified site of right female breast (principal)
CPT/HCPCS: 36415; 80053; 85025

== ENCOUNTER → 2021-07-07 | Outpatient (CLI) | payer MEDICARE ==
[2021-07-07 12:20] LABS: BASO % 1 % (0-3); EOS % 1 % (0-3); HEMATOCRIT 36.4 % (36.0-47.0); HEMOGLOBIN 12.2 g/dL (12.0-15.5); LYMPH # 1.2 x10^3/uL (1.0-4.8); LYMPH % 27 % (24-48); MEAN CORPUSCULAR HEMOGLOBIN 33 pg (25-35); MEAN CORPUSCULAR HGB CONC 34 g/dL (31-37); MEAN CORPUSCULAR VOLUME 99 fL (79-100); MONO # 0.4 x10^3/uL (0.0-1.1); MONO % 9 % (0-9); NEUT # 2.7 x10^3/uL (1.8-7.7); NEUT % 62 % (31-73); PLATELET COUNT 147 x10^3/uL (140-400); RED BLOOD COUNT 3.69 x10^6/uL (3.50-5.40); RED CELL DISTRIBUTION WIDTH 11.8 % (11.5-14.5); WHITE BLOOD COUNT 4.3 x10^3/uL (4.0-11.0)
[2021-07-07 12:47] LABS: ALBUMIN 3.5 g/dL (3.4-5.0); ALBUMIN/GLOBULIN RATIO 0.9 (1.0-1.7); ALK PHOS 106 U/L (46-116); ALT (SGPT) 27 U/L (14-59); AST (SGOT) 26 U/L (15-37); BLOOD UREA NITROGEN 6 mg/dL (7-20); BUN/CREATININE RATIO 12 (6-20); CALCIUM 9.8 mg/dL (8.5-10.1); CARBON DIOXIDE 42 mmol/L (21-32); CHLORIDE 94 mmol/L (98-107); CREATININE 0.5 mg/dL (0.6-1.0); GFR 120.9; GLUCOSE 101 mg/dL (70-99); POTASSIUM 5.3 mmol/L (3.5-5.1); SODIUM 133 mmol/L (136-145); TOTAL BILIRUBIN 0.4 mg/dL (0.2-1.0); TOTAL PROTEIN 7.3 g/dL (6.4-8.2)
== END ==
LOC: ONCLAB 12:00
PROVIDERS: ATTEND Internal Medicine Hematology & Oncology
DX: C50.911 Malignant neoplasm of unspecified site of right female breast (principal)
CPT/HCPCS: 36415; 80053; 85025